=== PATIENT | female | born 1950 ===

== ENCOUNTER 2019-03-01 07:35 | Inpatient (IN) ==
[2019-03-01] MEDS ORDERED: SODIUM CHLORIDE 0.9% 1,000 ML IV PRN (08:16)
[2019-03-01] MEDS ORDERED: PROPOFOL 1,000 MG/100 ML BOTTLE IV ONE (08:21)
[2019-03-01 08:22] LABS: Basophils # 0.1 10*3/uL (0.0-0.2); Basophils % 0.6 % (0.0-0.8); Eosinophils # 0.2 10*3/uL (0.0-0.87); Eosinophils % 1.9 % (0.00-10.9); Hematocrit 20.8 VOL% (35.7-47.0); Immature Granulocytes % 0.5 %; Immature Granulocytes Absolute 0.05 #; Lymphocytes # 1.9 10*3/uL (1.4-4.0); Lymphocytes % 19.4 % (21.3-54.2); Mean Corpuscular HGB Conc 30.3 GM/DL (32-36); Mean Corpuscular Volume 103.5 FL (87-102); Mean Platelet Volume 12.2 FL (9.6-12.0); Monocytes % 4.9 % (1.7-12.7); Neutrophils % 72.7 % (38.7-73.9); Red Blood Count 2.01 MC/CUMM (3.8-5.5); Red Cell Distribution Width 14.8 % (9.3-17.3); White Blood Count 9.9 T/CUMM (4-12)
[2019-03-01 08:28] LABS: Hemoglobin 6.3 GM/DL (12.0-16.0); Platelet Count 70 T/CUMM (130-400)
[2019-03-01 08:31] LABS: INR 1.4; PT Patient Result 15.5 SECS (9.6-12.2); Partial Thromboplastin Time 30.9 SECS (20.8-36.0)
[2019-03-01 08:46] LABS: Hypochromasia 2+; Ovalocytes Slight; Platelet Estimate Decreased
[2019-03-01 08:47] LABS: Alanine Aminotransferase 30 U/L (13-56); Albumin 2.3 G/DL (3.4-5.0); Alkaline Phosphatase 122 U/L (45-117); Amylase 60 U/L (25-115); Aspartate Amino Transferase 55 U/L (0-37); Blood Urea Nitrogen 35 MG/DL (7-18); Calcium 7.3 MG/DL (8.5-10.1); Estimated Glom Filtration Rate 5 ML/MIN; Glucose 197 MG/DL (74-106); Osmolality,Calculated 298.8 MOS/KG (273-304); Total Protein 4.7 G/DL (6.4-8.3)
[2019-03-01] MEDS ORDERED: ACETAMINOPHEN 325 MG TABLET PO PRN (09:14)
[2019-03-01 09:27] LABS: Basophils # 0.1 10*3/uL (0.0-0.2); Basophils % 0.4 % (0.0-0.8); Eosinophils # 0.1 10*3/uL (0.0-0.87); Eosinophils % 0.6 % (0.00-10.9); Hematocrit 34.3 VOL% (35.7-47.0); Immature Granulocytes % 0.4 %; Immature Granulocytes Absolute 0.05 #; Lymphocytes # 0.7 10*3/uL (1.4-4.0); Lymphocytes % 6.3 % (21.3-54.2); Mean Corpuscular HGB Conc 31.5 GM/DL (32-36); Mean Corpuscular Volume 95.5 FL (87-102); Monocytes % 7.5 % (1.7-12.7); Neutrophils % 84.8 % (38.7-73.9); Red Blood Count 3.59 MC/CUMM (3.8-5.5); Red Cell Distribution Width 15.4 % (9.3-17.3); White Blood Count 11.5 T/CUMM (4-12)
[2019-03-01 09:29] LABS: Hemoglobin 10.8 GM/DL (12.0-16.0); Platelet Count 58 T/CUMM (130-400)
[2019-03-01] MEDS ORDERED: NOREPINEPHRINE 4 MG/4 ML VIAL IV ONE ×2 (09:45→10:26)
[2019-03-01] MEDS: DEXTROSE 5% NACL 0.45% 1,000 ML IV SCH ×2 (10:05→19:10)
[2019-03-01] MEDS: NOREPINEPHRINE 16 MG in SODIUM CHLORIDE 0.9% 234 ML IV PRN (10:23)
[2019-03-01] MEDS: ALBUTEROL/IPRATROPIUM 3 ML NEB RESP TX SCH ×3 (14:40→23:43)
[2019-03-01 14:42] LABS: Hematocrit 29.7 VOL% (35.7-47.0); Hemoglobin 9.7 GM/DL (12.0-16.0)
[2019-03-01] MEDS: MORPHINE 4 MG/1 ML VIAL IV PRN ×2 (16:54→23:54)
[2019-03-01] MEDS ORDERED: DEXTROSE 5% NACL 0.45% 1,000 ML IV SCH (19:30)
[2019-03-02] MEDS: ALBUTEROL/IPRATROPIUM 3 ML NEB RESP TX SCH ×6 (02:40→23:56)
[2019-03-02 05:08] LABS: Basophils # 0.1 10*3/uL (0.0-0.2); Basophils % 0.5 % (0.0-0.8); Eosinophils % 0.3 % (0.00-10.9); Hematocrit 25.1 VOL% (35.7-47.0); Hemoglobin 8.3 GM/DL (12.0-16.0); Immature Granulocytes % 0.7 %; Immature Granulocytes Absolute 0.08 #; Lymphocytes # 1.2 10*3/uL (1.4-4.0); Lymphocytes % 9.9 % (21.3-54.2); Mean Corpuscular HGB Conc 33.1 GM/DL (32-36); Mean Corpuscular Volume 92.3 FL (87-102); Mean Platelet Volume 12.6 FL (9.6-12.0); Monocytes % 12.8 % (1.7-12.7); NRBC # 0.02 10*3/uL; Neutrophils % 75.8 % (38.7-73.9); Red Blood Count 2.72 MC/CUMM (3.8-5.5); Red Cell Distribution Width 16.2 % (9.3-17.3); White Blood Count 11.9 T/CUMM (4-12)
[2019-03-02 05:10] LABS: Platelet Count 74 T/CUMM (130-400)
[2019-03-02 05:23] LABS: Albumin 2.6 G/DL (3.4-5.0); Bilirubin,Total 0.5 MG/DL (0.2-1.0); Calcium 7.4 MG/DL (8.5-10.1); Osmolality,Calculated 294.4 MOS/KG (273-304); Total Protein 5.3 G/DL (6.4-8.3)
[2019-03-02 05:39] LABS: Platelet Estimate Decreased; Polychromasia Few
[2019-03-02] MEDS: PANTOPRAZOLE 40 MG TABLET PO SCH (09:00)
[2019-03-02] MEDS: ONDANSETRON 4 MG/2 ML VIAL IV PRN ×2 (09:06→14:07)
[2019-03-02] MEDS: MORPHINE 4 MG/1 ML VIAL IV PRN ×5 (09:08→22:40)
[2019-03-02] MEDS ORDERED: PROMETHAZINE INJ 25 MG in SODIUM CHLORIDE 0.9% 50 ML IV ONE (14:17)
[2019-03-03] MEDS: NOREPINEPHRINE 16 MG in SODIUM CHLORIDE 0.9% 234 ML IV PRN (01:28)
[2019-03-03] MEDS: MORPHINE 4 MG/1 ML VIAL IV PRN ×4 (03:22→19:10)
[2019-03-03] MEDS: ALBUTEROL/IPRATROPIUM 3 ML NEB RESP TX SCH ×5 (03:33→19:56)
[2019-03-03 07:44] LABS: Albumin 2.4 G/DL (3.4-5.0); Bilirubin,Total 0.5 MG/DL (0.2-1.0); Calcium 7.6 MG/DL (8.5-10.1); Osmolality,Calculated 297.4 MOS/KG (273-304); Total Protein 5.4 G/DL (6.4-8.3)
[2019-03-03 08:27] LABS: Basophils # 0.1 10*3/uL (0.0-0.2); Basophils % 0.5 % (0.0-0.8); Eosinophils % 0.4 % (0.00-10.9); Immature Granulocytes % 0.7 %; Immature Granulocytes Absolute 0.07 #; Lymphocytes # 0.8 10*3/uL (1.4-4.0); Lymphocytes % 7.6 % (21.3-54.2); Mean Corpuscular HGB Conc 32.6 GM/DL (32-36); Mean Corpuscular Volume 94.1 FL (87-102); Mean Platelet Volume 11.3 FL (9.6-12.0); NRBC # 0.02 10*3/uL; Neutrophils % 75.8 % (38.7-73.9); Red Cell Distribution Width 16.4 % (9.3-17.3); White Blood Count 10.3 T/CUMM (4-12)
[2019-03-03 08:31] LABS: Hemoglobin 6.2 GM/DL (12.0-16.0); Platelet Count 56 T/CUMM (130-400); Red Blood Count 2.02 MC/CUMM (3.8-5.5)
[2019-03-03] MEDS ORDERED: SODIUM CHLORIDE 0.9% 1,000 ML IV PRN (08:33)
[2019-03-03 08:59] LABS: Hypochromasia 1+; Platelet Estimate Decreased
[2019-03-03] MEDS: PANTOPRAZOLE 40 MG TABLET PO SCH (09:10)
[2019-03-03 17:23] LABS: Hematocrit 28.6 VOL% (35.7-47.0); Hemoglobin 9.4 GM/DL (12.0-16.0)
[2019-03-04] MEDS: ALBUTEROL/IPRATROPIUM 3 ML NEB RESP TX SCH ×7 (00:45→23:00)
[2019-03-04 05:20] LABS: Basophils % 0.3 % (0.0-0.8); Eosinophils # 0.1 10*3/uL (0.0-0.87); Eosinophils % 2.2 % (0.00-10.9); Hematocrit 27.4 VOL% (35.7-47.0); Hemoglobin 9.1 GM/DL (12.0-16.0); Immature Granulocytes % 0.3 %; Immature Granulocytes Absolute 0.02 #; Lymphocytes # 0.6 10*3/uL (1.4-4.0); Lymphocytes % 9.1 % (21.3-54.2); Mean Corpuscular HGB Conc 33.2 GM/DL (32-36); Mean Corpuscular Volume 89.5 FL (87-102); Mean Platelet Volume 10.6 FL (9.6-12.0); Monocytes % 15.9 % (1.7-12.7); Neutrophils % 72.2 % (38.7-73.9); Red Blood Count 3.06 MC/CUMM (3.8-5.5); Red Cell Distribution Width 16.4 % (9.3-17.3); White Blood Count 6.4 T/CUMM (4-12)
[2019-03-04 05:28] LABS: Platelet Count 31 T/CUMM (130-400)
[2019-03-04 05:38] LABS: Albumin 2.7 G/DL (3.4-5.0); Calcium 8.3 MG/DL (8.5-10.1); Osmolality,Calculated 282.5 MOS/KG (273-304); Total Protein 5.8 G/DL (6.4-8.3)
[2019-03-04 05:46] LABS: Eosinophils 1 % (0-10); Lymphocytes 5 % (20-55); Myelocytes 1 %; Platelet Estimate Decreased; Polychromasia Slight; Segmented Neutrophils 78 % (50-85); Total Cells Counted 100
[2019-03-04] MEDS: PANTOPRAZOLE 40 MG TABLET PO SCH (08:08)
[2019-03-04] MEDS: MORPHINE 4 MG/1 ML VIAL IV PRN (11:01)
[2019-03-04] MEDS ORDERED: SODIUM CHLORIDE 0.9% 1,000 ML IV PRN (11:49)
[2019-03-04] MEDS ORDERED: diphenhydrAMINE 25 MG/10 ML UDCUP PO PRN (14:42)
[2019-03-04] MEDS ORDERED: diphenhydrAMINE CAP 25 MG CAPSULE PO PRN (14:44)
[2019-03-05] MEDS: ALBUTEROL/IPRATROPIUM 3 ML NEB RESP TX SCH ×6 (02:42→22:39)
[2019-03-05 05:22] LABS: Basophils % 0.3 % (0.0-0.8); Eosinophils # 0.2 10*3/uL (0.0-0.87); Eosinophils % 2.8 % (0.00-10.9); Hematocrit 28.9 VOL% (35.7-47.0); Hemoglobin 9.5 GM/DL (12.0-16.0); Immature Granulocytes % 0.5 %; Immature Granulocytes Absolute 0.04 #; Lymphocytes # 0.6 10*3/uL (1.4-4.0); Lymphocytes % 7.3 % (21.3-54.2); Mean Corpuscular HGB Conc 32.9 GM/DL (32-36); Mean Corpuscular Volume 90.6 FL (87-102); Mean Platelet Volume 11.6 FL (9.6-12.0); Monocytes % 13.3 % (1.7-12.7); Neutrophils % 75.8 % (38.7-73.9); Red Blood Count 3.19 MC/CUMM (3.8-5.5); Red Cell Distribution Width 16.1 % (9.3-17.3); White Blood Count 7.5 T/CUMM (4-12)
[2019-03-05 05:29] LABS: Platelet Count 75 T/CUMM (130-400)
[2019-03-05 05:47] LABS: Calcium 8.1 MG/DL (8.5-10.1); Osmolality,Calculated 287.5 MOS/KG (273-304)
[2019-03-05] MEDS ORDERED: HEPARIN/NACL 0.9% 2 UNITS/ML 500 ML IV ONE (06:14)
[2019-03-05] MEDS ORDERED: VANCOMYCIN 1,000 MG VIAL ONE (07:49)
[2019-03-05] MEDS ORDERED: ceFAZolin 1,000 MG VIAL ONE (08:51)
[2019-03-05] MEDS ORDERED: fentaNYL 100 MCG/2 ML VIAL ONE (09:35)
[2019-03-05] MEDS ORDERED: ETOMIDATE 40 MG/20 ML VIAL IV ONE (09:35)
[2019-03-05] MEDS ORDERED: LIDOCAINE 2% 5 ML VIAL ONE (09:35)
[2019-03-05] MEDS ORDERED: PHENYLEPHRINE 1 MG/10 ML SYRINGE IV ONE (09:35)
[2019-03-05] MEDS ORDERED: SEVOFLURANE 1 UNIT/15 MINUTE INH ONE (09:35)
[2019-03-05] MEDS ORDERED: PROPOFOL 200 MG/20 ML VIAL IV ONE (09:35)
[2019-03-05] MEDS ORDERED: GLYCOPYRROLATE 0.4 MG/2 ML VIAL ONE (09:36)
[2019-03-05] MEDS ORDERED: NEOSTIGMINE 10 MG/10 ML VIAL ONE (09:36)
[2019-03-05] MEDS ORDERED: ROCURONIUM 100 MG/10 ML VIAL IV ONE (09:36)
[2019-03-05] MEDS ORDERED: ONDANSETRON 4 MG/2 ML VIAL ONE (09:36)
[2019-03-05] MEDS ORDERED: SODIUM CHLORIDE 0.9% 750 ML IV ONE (09:37)
[2019-03-05] MEDS: PANTOPRAZOLE 40 MG TABLET PO SCH (10:18)
[2019-03-05] MEDS: MORPHINE 4 MG/1 ML VIAL IV PRN ×3 (10:19→16:35)
[2019-03-05] MEDS ORDERED: MIDAZOLAM 2 MG/2 ML VIAL ONE (11:31)
[2019-03-05] MEDS: ceFAZolin 1,000 MG in SYRINGE 1 EACH IV SCH (15:34)
[2019-03-06] MEDS: ceFAZolin 1,000 MG in SYRINGE 1 EACH IV SCH ×2 (00:47→07:18)
[2019-03-06] MEDS: ALBUTEROL/IPRATROPIUM 3 ML NEB RESP TX SCH ×6 (02:42→23:03)
[2019-03-06 04:33] LABS: Basophils % 0.3 % (0.0-0.8); Eosinophils # 0.1 10*3/uL (0.0-0.87); Eosinophils % 1.9 % (0.00-10.9); Hematocrit 25.3 VOL% (35.7-47.0); Hemoglobin 8.2 GM/DL (12.0-16.0); Immature Granulocytes % 0.4 %; Immature Granulocytes Absolute 0.03 #; Lymphocytes # 0.4 10*3/uL (1.4-4.0); Lymphocytes % 5.4 % (21.3-54.2); Mean Corpuscular HGB Conc 32.4 GM/DL (32-36); Mean Corpuscular Volume 91.7 FL (87-102); Mean Platelet Volume 12.2 FL (9.6-12.0); Red Blood Count 2.76 MC/CUMM (3.8-5.5); Red Cell Distribution Width 16.1 % (9.3-17.3); White Blood Count 6.9 T/CUMM (4-12)
[2019-03-06 04:34] LABS: Osmolality,Calculated 289.8 MOS/KG (273-304); Platelet Count 64 T/CUMM (130-400)
[2019-03-06 05:05] LABS: Eosinophils 4 % (0-10); Lymphocytes 9 % (20-55); Platelet Estimate Decreased; Segmented Neutrophils 74 % (50-85); Total Cells Counted 100
[2019-03-06] MEDS: MORPHINE 4 MG/1 ML VIAL IV PRN ×3 (07:18→13:50)
[2019-03-06] MEDS: PANTOPRAZOLE 40 MG TABLET PO SCH (08:47)
[2019-03-06] MEDS: MIDODRINE 5 MG TABLET PO SCH ×2 (14:39→20:30)
[2019-03-06] MEDS: SEVELAMER CARBONATE 800 MG TABLET PO SCH ×3 (14:39→20:41)
[2019-03-06] MEDS: CALCIUM ACETATE 667 MG CAPSULE PO SCH ×2 (14:39→17:03)
[2019-03-06] MEDS: DOCUSATE SODIUM 100 MG CAPSULE PO SCH (20:30)
[2019-03-06] MEDS: LATANOPROST 0.005% OPH SOLN 2.5 ML BOTTLE BOTH EYES SCH (23:21)
[2019-03-07] MEDS: ALBUTEROL/IPRATROPIUM 3 ML NEB RESP TX SCH ×5 (02:01→19:42)
[2019-03-07 06:05] LABS: Basophils % 0.1 % (0.0-0.8); Eosinophils # 0.2 10*3/uL (0.0-0.87); Eosinophils % 2.2 % (0.00-10.9); Hematocrit 27.4 VOL% (35.7-47.0); Hemoglobin 8.8 GM/DL (12.0-16.0); Immature Granulocytes % 0.7 %; Immature Granulocytes Absolute 0.05 #; Lymphocytes # 0.4 10*3/uL (1.4-4.0); Lymphocytes % 5.1 % (21.3-54.2); Mean Corpuscular HGB Conc 32.1 GM/DL (32-36); Mean Corpuscular Volume 92.3 FL (87-102); Mean Platelet Volume 11.8 FL (9.6-12.0); Monocytes % 15.4 % (1.7-12.7); Neutrophils % 76.5 % (38.7-73.9); Platelet Count 75 T/CUMM (130-400); Red Blood Count 2.97 MC/CUMM (3.8-5.5); White Blood Count 7.1 T/CUMM (4-12)
[2019-03-07 06:25] LABS: Calcium 8.8 MG/DL (8.5-10.1)
[2019-03-07 06:56] LABS: Anisocytosis 1+; Hypochromasia 1+; Microcytosis 1+; Ovalocytes Few
[2019-03-07 06:57] LABS: Platelet Estimate Decreased; Target Cells Slight
[2019-03-07] MEDS: DOCUSATE SODIUM 100 MG CAPSULE PO SCH ×2 (09:45→20:23)
[2019-03-07] MEDS: SEVELAMER CARBONATE 800 MG TABLET PO SCH ×3 (09:45→20:23)
[2019-03-07] MEDS: CALCIUM ACETATE 667 MG CAPSULE PO SCH ×3 (09:45→16:57)
[2019-03-07] MEDS: MIDODRINE 5 MG TABLET PO SCH ×3 (11:57→20:23)
[2019-03-07] MEDS: MULTIVITAMIN (BEROCCA) TABLET PO SCH (12:01)
[2019-03-07] MEDS: PANTOPRAZOLE 40 MG TABLET PO SCH (12:01)
[2019-03-07] MEDS: FONDAPARINUX 2.5 MG/0.5 ML SYRINGE SUBCUT SCH (13:04)
[2019-03-07] MEDS: LATANOPROST 0.005% OPH SOLN 2.5 ML BOTTLE BOTH EYES SCH (20:24)
[2019-03-08] MEDS: ALBUTEROL/IPRATROPIUM 3 ML NEB RESP TX SCH ×7 (03:41→23:57)
[2019-03-08 05:59] LABS: Basophils % 0.3 % (0.0-0.8); Eosinophils # 0.3 10*3/uL (0.0-0.87); Eosinophils % 4.5 % (0.00-10.9); Hematocrit 27.8 VOL% (35.7-47.0); Hemoglobin 8.8 GM/DL (12.0-16.0); Immature Granulocytes % 0.7 %; Immature Granulocytes Absolute 0.04 #; Lymphocytes # 0.5 10*3/uL (1.4-4.0); Lymphocytes % 8.6 % (21.3-54.2); Mean Corpuscular HGB Conc 31.7 GM/DL (32-36); Mean Corpuscular Volume 93.9 FL (87-102); Mean Platelet Volume 11.6 FL (9.6-12.0); Monocytes % 14.1 % (1.7-12.7); Neutrophils % 71.8 % (38.7-73.9); Platelet Count 86 T/CUMM (130-400); Red Blood Count 2.96 MC/CUMM (3.8-5.5); Red Cell Distribution Width 15.9 % (9.3-17.3)
[2019-03-08 06:25] LABS: Band Neutrophils 12 % (0-10); Eosinophils 3 % (0-10); Lymphocytes 11 % (20-55); Segmented Neutrophils 63 % (50-85); Total Cells Counted 100
[2019-03-08 06:26] LABS: Anisocytosis 1+; Hypochromasia Slight; Platelet Estimate Decreased
[2019-03-08] MEDS: MULTIVITAMIN (BEROCCA) TABLET PO SCH (09:35)
[2019-03-08] MEDS: PANTOPRAZOLE 40 MG TABLET PO SCH (09:36)
[2019-03-08] MEDS: DOCUSATE SODIUM 100 MG CAPSULE PO SCH ×2 (09:36→20:03)
[2019-03-08] MEDS: SEVELAMER CARBONATE 800 MG TABLET PO SCH ×3 (09:36→20:03)
[2019-03-08] MEDS: MIDODRINE 5 MG TABLET PO SCH ×3 (09:36→20:02)
[2019-03-08] MEDS: CALCIUM ACETATE 667 MG CAPSULE PO SCH ×3 (09:36→17:59)
[2019-03-08] MEDS: FONDAPARINUX 2.5 MG/0.5 ML SYRINGE SUBCUT SCH (11:56)
[2019-03-08] MEDS: LATANOPROST 0.005% OPH SOLN 2.5 ML BOTTLE BOTH EYES SCH (20:03)
[2019-03-09] MEDS: ALBUTEROL/IPRATROPIUM 3 ML NEB RESP TX SCH ×5 (04:00→20:56)
[2019-03-09] MEDS: SEVELAMER CARBONATE 800 MG TABLET PO SCH ×3 (09:30→22:00)
[2019-03-09] MEDS: CALCIUM ACETATE 667 MG CAPSULE PO SCH ×3 (09:31→17:47)
[2019-03-09] MEDS: MULTIVITAMIN (BEROCCA) TABLET PO SCH (09:31)
[2019-03-09] MEDS: PANTOPRAZOLE 40 MG TABLET PO SCH (09:31)
[2019-03-09] MEDS: MIDODRINE 5 MG TABLET PO SCH ×3 (09:31→22:00)
[2019-03-09] MEDS: DOCUSATE SODIUM 100 MG CAPSULE PO SCH ×2 (09:32→22:00)
[2019-03-09] MEDS: FONDAPARINUX 2.5 MG/0.5 ML SYRINGE SUBCUT SCH (11:59)
[2019-03-09] MEDS: LATANOPROST 0.005% OPH SOLN 2.5 ML BOTTLE BOTH EYES SCH (22:00)
[2019-03-10] MEDS: ALBUTEROL/IPRATROPIUM 3 ML NEB RESP TX SCH ×4 (00:46→11:07)
[2019-03-10] MEDS: CALCIUM ACETATE 667 MG CAPSULE PO SCH ×2 (08:00→12:48)
[2019-03-10] MEDS: SEVELAMER CARBONATE 800 MG TABLET PO SCH (09:00)
[2019-03-10] MEDS: MIDODRINE 5 MG TABLET PO SCH (09:00)
[2019-03-10 12:25] VITALS: BP 137/46
[2019-03-10] MEDS: FONDAPARINUX 2.5 MG/0.5 ML SYRINGE SUBCUT SCH (12:49)
[2019-03-10] MEDS: MULTIVITAMIN (BEROCCA) TABLET PO SCH (12:49)
[2019-03-10] MEDS: DOCUSATE SODIUM 100 MG CAPSULE PO SCH (12:49)
[2019-03-10] MEDS: PANTOPRAZOLE 40 MG TABLET PO SCH (12:49)
== END 2019-03-10 14:20 | DRG 515 ==
LOC: EDUNIT# → EDBD → N.ED 07:35 → N.EDINP 09:14 → N.ICU 10:26 → N.3E 03-06 15:26
PROVIDERS: ADMIT Surgery; ATTEND Surgery

== ENCOUNTER 2019-03-18 10:22 | Inpatient (IN) ==
[2019-03-18] MEDS ORDERED: SODIUM CHLORIDE 0.9% 500 ML IV STA (10:27)
[2019-03-18 10:58] LABS: Basophils % 0.2 % (0.0-0.8); Eosinophils # 0.1 10*3/uL (0.0-0.87); Eosinophils % 0.4 % (0.00-10.9); Hematocrit 21.3 VOL% (35.7-47.0); Hemoglobin 6.6 GM/DL (12.0-16.0); Immature Granulocytes % 1.3 %; Immature Granulocytes Absolute 0.23 #; Lymphocytes # 0.5 10*3/uL (1.4-4.0); Mean Corpuscular Volume 99.5 FL (87-102); Mean Platelet Volume 11.2 FL (9.6-12.0); Monocytes % 8.7 % (1.7-12.7); Neutrophils % 86.4 % (38.7-73.9); Platelet Count 215 T/CUMM (130-400); Red Blood Count 2.14 MC/CUMM (3.8-5.5); Red Cell Distribution Width 17.2 % (9.3-17.3); White Blood Count 17.9 T/CUMM (4-12)
[2019-03-18 11:10] LABS: INR 2.2
[2019-03-18 11:14] LABS: PT Patient Result 24.1 SECS (9.6-12.2)
[2019-03-18 11:21] LABS: Anisocytosis 1+; Band Neutrophils 2 % (0-10); Lymphocytes 2 % (20-55); Platelet Estimate Normal; Segmented Neutrophils 87 % (50-85); Total Cells Counted 100
[2019-03-18 11:22] LABS: Macrocytosis 1+; Polychromasia Slight
[2019-03-18 11:35] LABS: Albumin 2.2 G/DL (3.4-5.0); Calcium 8.8 MG/DL (8.5-10.1); Osmolality,Calculated 286.5 MOS/KG (273-304); Total Protein 5.9 G/DL (6.4-8.3)
[2019-03-18] MEDS ORDERED: DEXTROSE 50% 25 GM/50 ML VIAL IV PRN (12:03)
[2019-03-18] MEDS ORDERED: LACTULOSE 20 GM/30 ML UDCUP PO PRN (12:03)
[2019-03-18] MEDS ORDERED: ONDANSETRON 4 MG/2 ML VIAL IV PRN (12:03)
[2019-03-18] MEDS ORDERED: GLUCAGON 1 MG VIAL IM PRN (12:03)
[2019-03-18] MEDS ORDERED: SODIUM CHLORIDE 0.9% 1,000 ML IV PRN ×2 (12:11→13:19)
[2019-03-18] MEDS: SODIUM CHLORIDE 0.45% 1,000 ML IV SCH ×2 (13:09→21:02)
[2019-03-18] MEDS: LATANOPROST 0.005% OPH SOLN 2.5 ML BOTTLE BOTH EYES SCH (21:04)
[2019-03-18] MEDS: PIPERACILLIN/TAZOBACTAM 3,375 MG in SODIUM CHLORIDE 0.9% 100 ML IV SCH (21:04)
[2019-03-18] MEDS: MENTHOL/ZINC OXIDE OINT 71 GM JAR TOP SCH (21:04)
[2019-03-18] MEDS: traMADol 50 MG TABLET PO PRN (21:22)
[2019-03-19 01:36] LABS: Hematocrit 22.8 VOL% (35.7-47.0); Hemoglobin 7.1 GM/DL (12.0-16.0)
[2019-03-19 05:41] LABS: Alanine Aminotransferase < 9 U/L (13-56); Albumin 1.8 G/DL (3.4-5.0); Alkaline Phosphatase 115 U/L (45-117); Aspartate Amino Transferase 20 U/L (0-37); Blood Urea Nitrogen 43 MG/DL (7-18); Calcium 8.5 MG/DL (8.5-10.1); Estimated Glom Filtration Rate 10 ML/MIN; Glucose 130 MG/DL (74-106); Osmolality,Calculated 285.8 MOS/KG (273-304); Total Protein 5.2 G/DL (6.4-8.3)
[2019-03-19] MEDS: SODIUM CHLORIDE 0.45% 1,000 ML IV SCH (06:22)
[2019-03-19] MEDS: PIPERACILLIN/TAZOBACTAM 3,375 MG in SODIUM CHLORIDE 0.9% 100 ML IV SCH ×2 (08:18→20:32)
[2019-03-19] MEDS: MENTHOL/ZINC OXIDE OINT 71 GM JAR TOP SCH ×2 (08:22→20:32)
[2019-03-19] MEDS: MIDODRINE 5 MG TABLET PO SCH ×3 (08:22→17:31)
[2019-03-19] MEDS: SEVELAMER CARBONATE 800 MG TABLET PO SCH ×3 (08:22→17:30)
[2019-03-19] MEDS ORDERED: PANTOPRAZOLE 40 MG TABLET PO SCH ×2 (09:00)
[2019-03-19] MEDS ORDERED: SODIUM CHLORIDE 0.45% 1,000 ML IV SCH (10:07)
[2019-03-19 10:09] LABS: Hepatitis B Surface Ag Result Negative (Negative)
[2019-03-19] MEDS: PHYTONADIONE 5 MG/5 ML ORAL.SYR PO SCH (11:21)
[2019-03-19] MEDS: PANTOPRAZOLE 40 MG TABLET PO SCH (20:32)
[2019-03-19] MEDS: LATANOPROST 0.005% OPH SOLN 2.5 ML BOTTLE BOTH EYES SCH (20:32)
[2019-03-19] MEDS: traMADol 50 MG TABLET PO PRN (20:44)
[2019-03-20 05:58] LABS: INR 1.1; PT Patient Result 12.3 SECS (9.6-12.2)
[2019-03-20 06:01] LABS: Basophils # 0.1 10*3/uL (0.0-0.2); Basophils % 0.6 % (0.0-0.8); Eosinophils # 0.1 10*3/uL (0.0-0.87); Eosinophils % 1.1 % (0.00-10.9); Hematocrit 26.8 VOL% (35.7-47.0); Hemoglobin 8.6 GM/DL (12.0-16.0); Immature Granulocytes % 1.8 %; Immature Granulocytes Absolute 0.23 #; Lymphocytes # 0.7 10*3/uL (1.4-4.0); Lymphocytes % 5.8 % (21.3-54.2); Mean Corpuscular HGB Conc 32.1 GM/DL (32-36); Mean Corpuscular Volume 89.9 FL (87-102); Mean Platelet Volume 10.5 FL (9.6-12.0); Monocytes % 10.6 % (1.7-12.7); Neutrophils % 80.1 % (38.7-73.9); Red Cell Distribution Width 20.5 % (9.3-17.3)
[2019-03-20 06:05] LABS: Platelet Count 168 T/CUMM (130-400); Red Blood Count 2.98 MC/CUMM (3.8-5.5); White Blood Count 12.5 T/CUMM (4-12)
[2019-03-20 06:07] LABS: Calcium 8.8 MG/DL (8.5-10.1); Osmolality,Calculated 279.8 MOS/KG (273-304)
[2019-03-20] MEDS: SEVELAMER CARBONATE 800 MG TABLET PO SCH ×3 (09:39→16:31)
[2019-03-20] MEDS: traMADol 50 MG TABLET PO PRN ×2 (09:40→20:12)
[2019-03-20] MEDS: PANTOPRAZOLE 40 MG TABLET PO SCH ×2 (09:40→20:11)
[2019-03-20] MEDS: MIDODRINE 5 MG TABLET PO SCH ×3 (09:40→16:31)
[2019-03-20] MEDS: PIPERACILLIN/TAZOBACTAM 3,375 MG in SODIUM CHLORIDE 0.9% 100 ML IV SCH ×2 (09:41→20:11)
[2019-03-20] MEDS: PHYTONADIONE 5 MG/5 ML ORAL.SYR PO SCH (09:42)
[2019-03-20] MEDS: MENTHOL/ZINC OXIDE OINT 71 GM JAR TOP SCH ×2 (09:43→20:12)
[2019-03-20] MEDS ORDERED: propofoL 200 MG/20 ML VIAL IV ONE (10:00)
[2019-03-20] MEDS ORDERED: LIDOCAINE 2% 5 ML VIAL ONE (10:00)
[2019-03-20] MEDS ORDERED: ETOMIDATE 20 MG/10 ML VIAL IV ONE (10:00)
[2019-03-20] MEDS ORDERED: GLUCAGON 1 MG VIAL IM PRN (11:38)
[2019-03-20] MEDS: LATANOPROST 0.005% OPH SOLN 2.5 ML BOTTLE BOTH EYES SCH (20:12)
[2019-03-21 06:17] LABS: Basophils # 0.1 10*3/uL (0.0-0.2); Basophils % 0.4 % (0.0-0.8); Eosinophils # 0.2 10*3/uL (0.0-0.87); Eosinophils % 1.7 % (0.00-10.9); Hematocrit 27.2 VOL% (35.7-47.0); Hemoglobin 8.6 GM/DL (12.0-16.0); Immature Granulocytes % 3.1 %; Immature Granulocytes Absolute 0.35 #; Lymphocytes # 0.9 10*3/uL (1.4-4.0); Lymphocytes % 8.2 % (21.3-54.2); Mean Corpuscular HGB Conc 31.6 GM/DL (32-36); Mean Platelet Volume 10.8 FL (9.6-12.0); Monocytes % 12.3 % (1.7-12.7); Neutrophils % 74.3 % (38.7-73.9); Platelet Count 143 T/CUMM (130-400); Red Blood Count 2.99 MC/CUMM (3.8-5.5); Red Cell Distribution Width 20.6 % (9.3-17.3); White Blood Count 11.2 T/CUMM (4-12)
[2019-03-21] MEDS ORDERED: EPOETIN ALFA 2,000 UNIT/1 ML VIAL IV PRN (08:48)
[2019-03-21] MEDS: PANTOPRAZOLE 40 MG TABLET PO SCH ×2 (10:23→21:21)
[2019-03-21] MEDS: PIPERACILLIN/TAZOBACTAM 3,375 MG in SODIUM CHLORIDE 0.9% 100 ML IV SCH (10:23)
[2019-03-21] MEDS: MIDODRINE 5 MG TABLET PO SCH ×3 (10:23→16:32)
[2019-03-21] MEDS: SEVELAMER CARBONATE 800 MG TABLET PO SCH ×3 (10:23→16:32)
[2019-03-21] MEDS: MENTHOL/ZINC OXIDE OINT 71 GM JAR TOP SCH ×2 (10:27→21:22)
[2019-03-21] MEDS ORDERED: TUBERCULIN SKIN TEST 0.1 ML SYRINGE INTRADERM ONE (12:44)
[2019-03-21] MEDS: ACETAMINOPHEN 325 MG TABLET PO PRN ×2 (16:38→23:41)
[2019-03-21] MEDS: LATANOPROST 0.005% OPH SOLN 2.5 ML BOTTLE BOTH EYES SCH (21:25)
[2019-03-22] MEDS: PANTOPRAZOLE 40 MG TABLET PO SCH ×2 (09:09→20:36)
[2019-03-22] MEDS: AMOXICILLIN/CLAV 500 MG TABLET PO SCH (09:09)
[2019-03-22] MEDS: SEVELAMER CARBONATE 800 MG TABLET PO SCH ×3 (09:09→16:59)
[2019-03-22] MEDS: MIDODRINE 5 MG TABLET PO SCH ×3 (09:09→16:59)
[2019-03-22] MEDS: MENTHOL/ZINC OXIDE OINT 71 GM JAR TOP SCH ×2 (09:09→20:37)
[2019-03-22] MEDS: LATANOPROST 0.005% OPH SOLN 2.5 ML BOTTLE BOTH EYES SCH (20:38)
[2019-03-22] MEDS: ACETAMINOPHEN 325 MG TABLET PO PRN (20:43)
[2019-03-23] MEDS: PANTOPRAZOLE 40 MG TABLET PO SCH ×2 (08:13→21:01)
[2019-03-23] MEDS: SEVELAMER CARBONATE 800 MG TABLET PO SCH ×3 (08:13→16:17)
[2019-03-23] MEDS: MIDODRINE 5 MG TABLET PO SCH ×3 (08:13→16:17)
[2019-03-23] MEDS: MENTHOL/ZINC OXIDE OINT 71 GM JAR TOP SCH ×2 (08:13→21:05)
[2019-03-23] MEDS: AMOXICILLIN/CLAV 500 MG TABLET PO SCH (08:13)
[2019-03-23] MEDS: ACETAMINOPHEN 325 MG TABLET PO PRN ×2 (16:21→22:27)
[2019-03-23] MEDS: LATANOPROST 0.005% OPH SOLN 2.5 ML BOTTLE BOTH EYES SCH (21:01)
[2019-03-24] MEDS: SEVELAMER CARBONATE 800 MG TABLET PO SCH ×3 (08:22→17:42)
[2019-03-24] MEDS: MIDODRINE 5 MG TABLET PO SCH ×3 (08:22→17:42)
[2019-03-24] MEDS: PANTOPRAZOLE 40 MG TABLET PO SCH ×2 (08:31→22:21)
[2019-03-24] MEDS: AMOXICILLIN/CLAV 500 MG TABLET PO SCH (08:31)
[2019-03-24] MEDS: MENTHOL/ZINC OXIDE OINT 71 GM JAR TOP SCH ×2 (08:32→22:22)
[2019-03-24] MEDS: ACETAMINOPHEN 325 MG TABLET PO PRN (14:39)
[2019-03-24] MEDS: LATANOPROST 0.005% OPH SOLN 2.5 ML BOTTLE BOTH EYES SCH (22:21)
[2019-03-25] MEDS: SEVELAMER CARBONATE 800 MG TABLET PO SCH ×3 (08:44→17:22)
[2019-03-25] MEDS: MIDODRINE 5 MG TABLET PO SCH ×3 (08:44→17:22)
[2019-03-25] MEDS: PANTOPRAZOLE 40 MG TABLET PO SCH ×2 (08:44→22:09)
[2019-03-25] MEDS: AMOXICILLIN/CLAV 500 MG TABLET PO SCH (08:45)
[2019-03-25] MEDS: MENTHOL/ZINC OXIDE OINT 71 GM JAR TOP SCH (11:54)
[2019-03-25] MEDS: LATANOPROST 0.005% OPH SOLN 2.5 ML BOTTLE BOTH EYES SCH (22:10)
[2019-03-26] MEDS: MENTHOL/ZINC OXIDE OINT 71 GM JAR TOP SCH ×3 (00:22→20:53)
[2019-03-26] MEDS ORDERED: SODIUM CHLORIDE 0.9% 250 ML IV SCH (10:30)
[2019-03-26] MEDS: SEVELAMER CARBONATE 800 MG TABLET PO SCH ×3 (11:38→18:22)
[2019-03-26] MEDS: MIDODRINE 5 MG TABLET PO SCH ×3 (11:38→18:23)
[2019-03-26] MEDS ORDERED: fentaNYL 100 MCG/2 ML VIAL ONE (12:05)
[2019-03-26] MEDS ORDERED: propofoL 200 MG/20 ML VIAL IV ONE (12:05)
[2019-03-26] MEDS ORDERED: LIDOCAINE 2% 5 ML VIAL ONE (12:06)
[2019-03-26] MEDS ORDERED: ONDANSETRON 4 MG/2 ML VIAL ONE (12:06)
[2019-03-26] MEDS ORDERED: SODIUM CHLORIDE 0.9% 250 ML IV ONE (12:06)
[2019-03-26] MEDS ORDERED: SEVOFLURANE 1 UNIT/15 MINUTE INH ONE (12:06)
[2019-03-26] MEDS ORDERED: ETOMIDATE 40 MG/20 ML VIAL IV ONE (12:06)
[2019-03-26] MEDS ORDERED: PHENYLEPHRINE 1 MG/10 ML SYRINGE IV ONE (12:06)
[2019-03-26] MEDS ORDERED: ONDANSETRON 4 MG/2 ML VIAL IV PRN (12:11)
[2019-03-26] MEDS: HYDROmorphone 2 MG/1 ML VIAL IV PRN ×2 (12:13→12:26)
[2019-03-26] MEDS: AMOXICILLIN/CLAV 500 MG TABLET PO SCH (14:24)
[2019-03-26] MEDS: PANTOPRAZOLE 40 MG TABLET PO SCH ×2 (14:24→20:53)
[2019-03-26] MEDS: ACETAMINOPHEN 325 MG TABLET PO PRN (20:54)
[2019-03-26] MEDS: LATANOPROST 0.005% OPH SOLN 2.5 ML BOTTLE BOTH EYES SCH (23:41)
[2019-03-27] MEDS: SEVELAMER CARBONATE 800 MG TABLET PO SCH ×3 (09:05→17:02)
[2019-03-27] MEDS: MIDODRINE 5 MG TABLET PO SCH ×3 (09:05→17:02)
[2019-03-27] MEDS: PANTOPRAZOLE 40 MG TABLET PO SCH ×2 (09:05→21:14)
[2019-03-27] MEDS: AMOXICILLIN/CLAV 500 MG TABLET PO SCH (09:05)
[2019-03-27] MEDS: MENTHOL/ZINC OXIDE OINT 71 GM JAR TOP SCH ×2 (09:06→21:14)
[2019-03-27] MEDS: LATANOPROST 0.005% OPH SOLN 2.5 ML BOTTLE BOTH EYES SCH (21:14)
[2019-03-28] MEDS: MIDODRINE 5 MG TABLET PO SCH ×3 (12:00→19:05)
[2019-03-28] MEDS: SEVELAMER CARBONATE 800 MG TABLET PO SCH ×3 (12:00→19:05)
[2019-03-28] MEDS: PANTOPRAZOLE 40 MG TABLET PO SCH ×2 (12:01→20:57)
[2019-03-28] MEDS ORDERED: HYDROmorphone 2 MG/1 ML VIAL IV ONE (14:35)
[2019-03-28] MEDS: MENTHOL/ZINC OXIDE OINT 71 GM JAR TOP SCH ×2 (15:45→20:58)
[2019-03-28] MEDS: AMOXICILLIN/CLAV 500 MG TABLET PO SCH (15:45)
[2019-03-28] MEDS: LATANOPROST 0.005% OPH SOLN 2.5 ML BOTTLE BOTH EYES SCH (20:57)
[2019-03-29] MEDS: AMOXICILLIN/CLAV 500 MG TABLET PO SCH (09:17)
[2019-03-29] MEDS: SEVELAMER CARBONATE 800 MG TABLET PO SCH ×3 (09:17→17:05)
[2019-03-29] MEDS: MIDODRINE 5 MG TABLET PO SCH ×3 (09:17→17:05)
[2019-03-29] MEDS: MENTHOL/ZINC OXIDE OINT 71 GM JAR TOP SCH ×2 (09:18→21:27)
[2019-03-29] MEDS: PANTOPRAZOLE 40 MG TABLET PO SCH ×2 (09:18→21:27)
[2019-03-29] MEDS: LATANOPROST 0.005% OPH SOLN 2.5 ML BOTTLE BOTH EYES SCH (21:27)
[2019-03-30] MEDS: MENTHOL/ZINC OXIDE OINT 71 GM JAR TOP SCH ×2 (08:35→21:17)
[2019-03-30] MEDS: DOCUSATE SODIUM 100 MG CAPSULE PO PRN ×2 (08:38→21:17)
[2019-03-30] MEDS: MIDODRINE 5 MG TABLET PO SCH ×3 (08:38→17:26)
[2019-03-30] MEDS: SEVELAMER CARBONATE 800 MG TABLET PO SCH ×3 (08:38→17:26)
[2019-03-30] MEDS: PANTOPRAZOLE 40 MG TABLET PO SCH ×2 (08:38→21:18)
[2019-03-30 09:16] LABS: Basophils # 0.1 10*3/uL (0.0-0.2); Basophils % 0.6 % (0.0-0.8); Eosinophils # 0.5 10*3/uL (0.0-0.87); Eosinophils % 4.1 % (0.00-10.9); Hematocrit 29.8 VOL% (35.7-47.0); Hemoglobin 9.4 GM/DL (12.0-16.0); Immature Granulocytes % 0.8 %; Immature Granulocytes Absolute 0.09 #; Lymphocytes % 9.5 % (21.3-54.2); Mean Corpuscular HGB Conc 31.5 GM/DL (32-36); Mean Corpuscular Volume 94.3 FL (87-102); Monocytes % 11.3 % (1.7-12.7); Neutrophils % 73.7 % (38.7-73.9); Platelet Count 135 T/CUMM (130-400); Red Blood Count 3.16 MC/CUMM (3.8-5.5); Red Cell Distribution Width 19.9 % (9.3-17.3); White Blood Count 10.9 T/CUMM (4-12)
[2019-03-30] MEDS: LATANOPROST 0.005% OPH SOLN 2.5 ML BOTTLE BOTH EYES SCH (21:18)
[2019-03-31] MEDS: SEVELAMER CARBONATE 800 MG TABLET PO SCH ×2 (08:18→13:22)
[2019-03-31] MEDS: PANTOPRAZOLE 40 MG TABLET PO SCH (08:18)
[2019-03-31] MEDS: MIDODRINE 5 MG TABLET PO SCH ×2 (08:19→13:22)
[2019-03-31] MEDS: MENTHOL/ZINC OXIDE OINT 71 GM JAR TOP SCH (08:19)
[2019-03-31] MEDS ORDERED: MORPHINE 4 MG/1 ML VIAL IV ONE (13:39)
[2019-03-31 14:02] VITALS: BP 121/54
== END 2019-03-31 15:10 | DRG 356 ==
LOC: EDUNIT# → EDBD → N.ED 10:22 → SUATTDRO 12:03 → N.EDINP 12:03 → N.5E 13:01
PROVIDERS: ADMIT Internal Medicine; ATTEND Internal Medicine

== ENCOUNTER 2019-05-15 23:27 | Inpatient (IN) ==
[2019-05-16] MEDS ORDERED: ONDANSETRON 4 MG/2 ML VIAL IV STA (00:03)
[2019-05-16] MEDS ORDERED: VANCOMYCIN INJ 1,000 MG in SODIUM CHLORIDE 0.9% 250 ML IV STA ×2 (00:03→00:08)
[2019-05-16 00:43] LABS: Basophils # 0.1 10*3/uL (0.0-0.2); Eosinophils # 0.2 10*3/uL (0.0-0.87); Eosinophils % 2.1 % (0.00-10.9); Hematocrit 28.7 VOL% (35.7-47.0); Hemoglobin 8.7 GM/DL (12.0-16.0); Immature Granulocytes % 0.6 %; Immature Granulocytes Absolute 0.04 #; Lymphocytes # 0.8 10*3/uL (1.4-4.0); Lymphocytes % 10.8 % (21.3-54.2); Mean Corpuscular HGB Conc 30.3 GM/DL (32-36); Mean Platelet Volume 11.3 FL (9.6-12.0); Monocytes % 15.5 % (1.7-12.7); Platelet Count 132 T/CUMM (130-400); Red Blood Count 2.87 MC/CUMM (3.8-5.5); Red Cell Distribution Width 16.8 % (9.3-17.3); White Blood Count 7.2 T/CUMM (4-12)
[2019-05-16 00:46] LABS: INR 1.1; PT Patient Result 11.4 SECS (9.6-12.2)
[2019-05-16 00:59] LABS: Alanine Aminotransferase < 9 U/L (13-56); Albumin 2.4 G/DL (3.4-5.0); Alkaline Phosphatase 199 U/L (45-117); Aspartate Amino Transferase 15 U/L (0-37); Blood Urea Nitrogen 49 MG/DL (7-18); Calcium 9.4 MG/DL (8.5-10.1); Estimated Glom Filtration Rate 11 ML/MIN; Glucose 197 MG/DL (74-106); Osmolality,Calculated 290.8 MOS/KG (273-304); Total Protein 6.7 G/DL (6.4-8.3)
[2019-05-16] MEDS ORDERED: ACETAMINOPHEN 325 MG TABLET PO PRN (02:14)
[2019-05-16] MEDS ORDERED: ONDANSETRON 4 MG/2 ML VIAL IV PRN (02:14)
[2019-05-16] MEDS ORDERED: VANCOMYCIN INJ 1,250 MG in SODIUM CHLORIDE 0.9% 250 ML IV PRN (02:58)
[2019-05-16] MEDS ORDERED: VANCOMYCIN INJ 500 MG in SODIUM CHLORIDE 0.9% 100 ML IV PRN (03:30)
[2019-05-16] MEDS ORDERED: VANCOMYCIN INJ 750 MG in SODIUM CHLORIDE 0.9% 250 ML IV ONE (03:30)
[2019-05-16] MEDS ORDERED: VANCOMYCIN INJ 1,500 MG in SODIUM CHLORIDE 0.9% 500 ML IV ONE (03:30)
[2019-05-16] MEDS ORDERED: DEXTROSE 50% 25 GM/50 ML VIAL IV PRN (04:22)
[2019-05-16] MEDS ORDERED: GLUCAGON 1 MG VIAL IM PRN (04:22)
[2019-05-16] MEDS ORDERED: CEFEPIME 1,000 MG in SODIUM CHLORIDE 0.9% 100 ML IV ONE (09:30)
[2019-05-16] MEDS: INSULIN REGULAR 100 UNIT/ML SUBCUT SCH ×4 (10:31→21:50)
[2019-05-16] MEDS ORDERED: LACTULOSE 20 GM/30 ML UDCUP PO PRN (12:23)
[2019-05-16] MEDS ORDERED: POLYETHYLENE GLYCOL POWDER 17 GM PACK PO PRN (12:23)
[2019-05-16] MEDS: SEVELAMER CARBONATE 800 MG TABLET PO SCH (17:46)
[2019-05-16] MEDS: METOCLOPRAMIDE 5 MG TABLET PO SCH ×2 (17:46→21:50)
[2019-05-16] MEDS: FERROUS SULFATE 325 MG TABLET PO SCH (17:46)
[2019-05-16] MEDS: LATANOPROST 0.005% OPH SOLN 2.5 ML BOTTLE BOTH EYES SCH (21:49)
[2019-05-17 05:26] LABS: Basophils # 0.1 10*3/uL (0.0-0.2); Basophils % 0.9 % (0.0-0.8); Eosinophils # 0.3 10*3/uL (0.0-0.87); Eosinophils % 5.5 % (0.00-10.9); Hemoglobin 7.6 GM/DL (12.0-16.0); Immature Granulocytes % 0.9 %; Immature Granulocytes Absolute 0.05 #; Lymphocytes # 0.8 10*3/uL (1.4-4.0); Mean Corpuscular HGB Conc 29.2 GM/DL (32-36); Mean Corpuscular Volume 101.6 FL (87-102); Mean Platelet Volume 11.7 FL (9.6-12.0); Monocytes % 17.6 % (1.7-12.7); Neutrophils % 62.1 % (38.7-73.9); Platelet Count 124 T/CUMM (130-400); Red Blood Count 2.56 MC/CUMM (3.8-5.5); Red Cell Distribution Width 16.6 % (9.3-17.3); White Blood Count 5.8 T/CUMM (4-12)
[2019-05-17 05:55] LABS: Alanine Aminotransferase < 9 U/L (13-56); Albumin 2.2 G/DL (3.4-5.0); Alkaline Phosphatase 161 U/L (45-117); Aspartate Amino Transferase 11 U/L (0-37); Blood Urea Nitrogen 61 MG/DL (7-18); Calcium 8.9 MG/DL (8.5-10.1); Estimated Glom Filtration Rate 6 ML/MIN; Glucose 158 MG/DL (74-106); Osmolality,Calculated 298.4 MOS/KG (273-304); Total Protein 6.2 G/DL (6.4-8.3)
[2019-05-17 06:03] LABS: Osmolality,Calculated 296.5 MOS/KG (273-304); Risk Ratio 2.06; Thyroid Stimulating Hormone 8.05 uIU/ml (0.358-3.74); VLDL CHOLESTEROL 12.2 MG/DL
[2019-05-17 07:42] LABS: Band Neutrophils 1 % (0-10); Eosinophils 2 % (0-10); Hypochromasia 1+; Lymphocytes 10 % (20-55); Microcytosis Slight; Segmented Neutrophils 80 % (50-85); Total Cells Counted 100
[2019-05-17 07:43] LABS: Anisocytosis 1+; Macrocytosis Slight; Platelet Estimate Adequate; Polychromasia Slight
[2019-05-17] MEDS: INSULIN REGULAR 100 UNIT/ML SUBCUT SCH ×5 (09:17→21:52)
[2019-05-17] MEDS: METOCLOPRAMIDE 5 MG TABLET PO SCH ×4 (09:18→21:47)
[2019-05-17] MEDS: MULTIVITAMIN (BEROCCA) TABLET PO SCH (09:18)
[2019-05-17] MEDS: FERROUS SULFATE 325 MG TABLET PO SCH ×2 (09:18→17:24)
[2019-05-17] MEDS: PANTOPRAZOLE 40 MG TABLET PO SCH (09:18)
[2019-05-17] MEDS: SEVELAMER CARBONATE 800 MG TABLET PO SCH ×3 (09:18→17:24)
[2019-05-17] MEDS ORDERED: SODIUM CHLORIDE 0.9% 1,000 ML IV PRN (12:22)
[2019-05-17] MEDS: CEFEPIME 1,000 MG in SODIUM CHLORIDE 0.9% 100 ML IV SCH (17:24)
[2019-05-17] MEDS ORDERED: VANCOMYCIN INJ 500 MG in SODIUM CHLORIDE 0.9% 100 ML IV ONE (18:00)
[2019-05-17] MEDS: LATANOPROST 0.005% OPH SOLN 2.5 ML BOTTLE BOTH EYES SCH (21:47)
[2019-05-18 05:31] LABS: Basophils % 0.6 % (0.0-0.8); Eosinophils # 0.3 10*3/uL (0.0-0.87); Hematocrit 28.4 VOL% (35.7-47.0); Hemoglobin 8.6 GM/DL (12.0-16.0); Immature Granulocytes % 0.6 %; Immature Granulocytes Absolute 0.03 #; Lymphocytes # 0.9 10*3/uL (1.4-4.0); Lymphocytes % 18.1 % (21.3-54.2); Mean Corpuscular HGB Conc 30.3 GM/DL (32-36); Mean Corpuscular Volume 100.4 FL (87-102); Mean Platelet Volume 11.6 FL (9.6-12.0); Monocytes % 16.6 % (1.7-12.7); Neutrophils % 58.1 % (38.7-73.9); Platelet Count 111 T/CUMM (130-400); Red Blood Count 2.83 MC/CUMM (3.8-5.5); Red Cell Distribution Width 16.4 % (9.3-17.3); White Blood Count 5.2 T/CUMM (4-12)
[2019-05-18 05:58] LABS: Calcium 9.2 MG/DL (8.5-10.1); Osmolality,Calculated 284.5 MOS/KG (273-304)
[2019-05-18 06:40] LABS: Eosinophils 12 % (0-10); Lymphocytes 11 % (20-55); Segmented Neutrophils 67 % (50-85); Total Cells Counted 100
[2019-05-18 06:41] LABS: Anisocytosis 1+; Ovalocytes 2+; Platelet Estimate Adequate
[2019-05-18] MEDS: PANTOPRAZOLE 40 MG TABLET PO SCH (08:19)
[2019-05-18] MEDS: FERROUS SULFATE 325 MG TABLET PO SCH ×2 (08:19→17:00)
[2019-05-18] MEDS: SEVELAMER CARBONATE 800 MG TABLET PO SCH ×3 (08:19→17:00)
[2019-05-18] MEDS: METOCLOPRAMIDE 5 MG TABLET PO SCH ×4 (08:19→21:38)
[2019-05-18] MEDS: INSULIN REGULAR 100 UNIT/ML SUBCUT SCH ×4 (08:19→21:40)
[2019-05-18] MEDS: MULTIVITAMIN (BEROCCA) TABLET PO SCH (08:19)
[2019-05-18] MEDS: CEFEPIME 1,000 MG in SODIUM CHLORIDE 0.9% 100 ML IV SCH (17:00)
[2019-05-18] MEDS: LATANOPROST 0.005% OPH SOLN 2.5 ML BOTTLE BOTH EYES SCH (21:39)
[2019-05-19 04:27] LABS: Basophils % 0.8 % (0.0-0.8); Eosinophils # 0.3 10*3/uL (0.0-0.87); Eosinophils % 5.1 % (0.00-10.9); Hematocrit 27.5 VOL% (35.7-47.0); Hemoglobin 8.3 GM/DL (12.0-16.0); Immature Granulocytes Absolute 0.05 #; Lymphocytes # 0.9 10*3/uL (1.4-4.0); Mean Corpuscular HGB Conc 30.2 GM/DL (32-36); Mean Corpuscular Volume 99.6 FL (87-102); Mean Platelet Volume 11.4 FL (9.6-12.0); Monocytes % 19.6 % (1.7-12.7); Neutrophils % 56.5 % (38.7-73.9); Platelet Count 106 T/CUMM (130-400); Red Blood Count 2.76 MC/CUMM (3.8-5.5); Red Cell Distribution Width 15.9 % (9.3-17.3); White Blood Count 5.1 T/CUMM (4-12)
[2019-05-19 04:56] LABS: Eosinophils 2 % (0-10); Hypochromasia 1+; Lymphocytes 14 % (20-55); Ovalocytes Slight; Platelet Estimate Decreased; Segmented Neutrophils 63 % (50-85); Total Cells Counted 100
[2019-05-19] MEDS: FERROUS SULFATE 325 MG TABLET PO SCH (09:09)
[2019-05-19] MEDS: METOCLOPRAMIDE 5 MG TABLET PO SCH ×4 (09:09→21:13)
[2019-05-19] MEDS: SEVELAMER CARBONATE 800 MG TABLET PO SCH ×3 (09:09→21:12)
[2019-05-19] MEDS: MULTIVITAMIN (BEROCCA) TABLET PO SCH (09:09)
[2019-05-19] MEDS: PANTOPRAZOLE 40 MG TABLET PO SCH (09:10)
[2019-05-19] MEDS: INSULIN REGULAR 100 UNIT/ML SUBCUT SCH ×4 (09:10→21:20)
[2019-05-19] MEDS ORDERED: VANCOMYCIN INJ 500 MG in SODIUM CHLORIDE 0.9% 100 ML IV ONE (17:00)
[2019-05-19] MEDS: LATANOPROST 0.005% OPH SOLN 2.5 ML BOTTLE BOTH EYES SCH (21:30)
[2019-05-20] MEDS ORDERED: CLINDAMYCIN INJ 900 MG in PREMIX 1 EACH IV ONE (06:00)
[2019-05-20 06:44] LABS: Basophils # 0.1 10*3/uL (0.0-0.2); Basophils % 0.8 % (0.0-0.8); Eosinophils # 0.3 10*3/uL (0.0-0.87); Eosinophils % 4.3 % (0.00-10.9); Hematocrit 28.9 VOL% (35.7-47.0); Hemoglobin 8.9 GM/DL (12.0-16.0); Immature Granulocytes % 0.5 %; Immature Granulocytes Absolute 0.03 #; Lymphocytes # 0.9 10*3/uL (1.4-4.0); Lymphocytes % 13.6 % (21.3-54.2); Mean Corpuscular HGB Conc 30.8 GM/DL (32-36); Mean Corpuscular Volume 97.3 FL (87-102); Mean Platelet Volume 11.7 FL (9.6-12.0); Monocytes % 15.2 % (1.7-12.7); Neutrophils % 65.6 % (38.7-73.9); Platelet Count 117 T/CUMM (130-400); Red Blood Count 2.97 MC/CUMM (3.8-5.5); Red Cell Distribution Width 15.9 % (9.3-17.3); White Blood Count 6.3 T/CUMM (4-12)
[2019-05-20 07:06] LABS: Calcium 9.9 MG/DL (8.5-10.1); Osmolality,Calculated 285.7 MOS/KG (273-304)
[2019-05-20] MEDS: INSULIN REGULAR 100 UNIT/ML SUBCUT SCH ×4 (09:50→21:18)
[2019-05-20] MEDS: FERROUS SULFATE 325 MG TABLET PO SCH ×2 (09:50→16:51)
[2019-05-20] MEDS: CEFEPIME 1,000 MG in SODIUM CHLORIDE 0.9% 100 ML IV SCH (09:50)
[2019-05-20] MEDS: SEVELAMER CARBONATE 800 MG TABLET PO SCH ×3 (10:02→16:27)
[2019-05-20] MEDS: PANTOPRAZOLE 40 MG TABLET PO SCH (10:02)
[2019-05-20] MEDS: METOCLOPRAMIDE 5 MG TABLET PO SCH ×4 (10:02→21:09)
[2019-05-20] MEDS: MULTIVITAMIN (BEROCCA) TABLET PO SCH (10:02)
[2019-05-20] MEDS ORDERED: CLINDAMYCIN INJ 50 ML IV ONE (10:17)
[2019-05-20] MEDS ORDERED: LIDOCAINE 2% 5 ML VIAL ONE (11:55)
[2019-05-20] MEDS ORDERED: propofoL 200 MG/20 ML VIAL IV ONE (11:55)
[2019-05-20] MEDS ORDERED: fentaNYL 100 MCG/2 ML VIAL ONE (11:55)
[2019-05-20] MEDS ORDERED: SEVOFLURANE 1 UNIT/15 MINUTE INH ONE (11:55)
[2019-05-20] MEDS ORDERED: ONDANSETRON 4 MG/2 ML VIAL ONE (11:56)
[2019-05-20] MEDS ORDERED: PHENYLEPHRINE 1 MG/10 ML SYRINGE IV ONE (11:56)
[2019-05-20] MEDS ORDERED: MIDAZOLAM 2 MG/2 ML VIAL ONE (11:56)
[2019-05-20] MEDS: HYDROmorphone 2 MG/1 ML VIAL IV PRN ×3 (12:05→12:26)
[2019-05-20] MEDS ORDERED: ONDANSETRON 4 MG/2 ML VIAL IV PRN (12:06)
[2019-05-20] MEDS ORDERED: CEFEPIME 1,000 MG in SODIUM CHLORIDE 0.9% 100 ML IV ONE (17:00)
[2019-05-20] MEDS ORDERED: ZALEPLON 5 MG CAPSULE PO PRN (18:20)
[2019-05-20] MEDS: LATANOPROST 0.005% OPH SOLN 2.5 ML BOTTLE BOTH EYES SCH (21:33)
[2019-05-20] MEDS: MORPHINE 4 MG/1 ML VIAL IV PRN (23:40)
[2019-05-21] MEDS: MORPHINE 4 MG/1 ML VIAL IV PRN ×2 (05:23→14:16)
[2019-05-21 05:50] LABS: Calcium 9.5 MG/DL (8.5-10.1); Osmolality,Calculated 290.5 MOS/KG (273-304)
[2019-05-21 06:01] LABS: Basophils # 0.1 10*3/uL (0.0-0.2); Basophils % 1.1 % (0.0-0.8); Eosinophils # 0.3 10*3/uL (0.0-0.87); Eosinophils % 3.8 % (0.00-10.9); Hematocrit 23.8 VOL% (35.7-47.0); Hemoglobin 7.2 GM/DL (12.0-16.0); Immature Granulocytes % 0.9 %; Immature Granulocytes Absolute 0.06 #; Lymphocytes % 15.5 % (21.3-54.2); Mean Corpuscular HGB Conc 30.3 GM/DL (32-36); Mean Corpuscular Volume 100.8 FL (87-102); Mean Platelet Volume 11.2 FL (9.6-12.0); Monocytes % 14.7 % (1.7-12.7); Platelet Count 120 T/CUMM (130-400); Red Blood Count 2.36 MC/CUMM (3.8-5.5); Red Cell Distribution Width 15.7 % (9.3-17.3); White Blood Count 6.5 T/CUMM (4-12)
[2019-05-21] MEDS: INSULIN REGULAR 100 UNIT/ML SUBCUT SCH ×4 (08:08→20:52)
[2019-05-21] MEDS: METOCLOPRAMIDE 5 MG TABLET PO SCH ×4 (08:08→20:53)
[2019-05-21] MEDS: PANTOPRAZOLE 40 MG TABLET PO SCH (08:09)
[2019-05-21] MEDS: FERROUS SULFATE 325 MG TABLET PO SCH ×2 (08:09→17:05)
[2019-05-21] MEDS: GABAPENTIN 100 MG CAPSULE PO SCH ×2 (08:09→20:53)
[2019-05-21] MEDS: SEVELAMER CARBONATE 800 MG TABLET PO SCH ×3 (08:09→17:05)
[2019-05-21] MEDS: MULTIVITAMIN (BEROCCA) TABLET PO SCH (08:09)
[2019-05-21] MEDS ORDERED: SODIUM CHLORIDE 0.9% 1,000 ML IV PRN (09:49)
[2019-05-21] MEDS: LATANOPROST 0.005% OPH SOLN 2.5 ML BOTTLE BOTH EYES SCH (20:57)
[2019-05-22 05:21] LABS: Basophils # 0.1 10*3/uL (0.0-0.2); Basophils % 0.6 % (0.0-0.8); Eosinophils # 0.2 10*3/uL (0.0-0.87); Eosinophils % 2.4 % (0.00-10.9); Hematocrit 26.5 VOL% (35.7-47.0); Hemoglobin 8.2 GM/DL (12.0-16.0); Immature Granulocytes % 1.1 %; Lymphocytes # 1.2 10*3/uL (1.4-4.0); Lymphocytes % 13.4 % (21.3-54.2); Mean Corpuscular HGB Conc 30.9 GM/DL (32-36); Mean Corpuscular Volume 103.1 FL (87-102); Mean Platelet Volume 12.2 FL (9.6-12.0); Monocytes % 15.7 % (1.7-12.7); Neutrophils % 66.8 % (38.7-73.9); Platelet Count 88 T/CUMM (130-400); Red Blood Count 2.57 MC/CUMM (3.8-5.5); Red Cell Distribution Width 15.7 % (9.3-17.3); White Blood Count 8.7 T/CUMM (4-12)
[2019-05-22 06:00] LABS: Eosinophils 3 % (0-10); Lymphocytes 13 % (20-55); Myelocytes 1 %; Segmented Neutrophils 71 % (50-85); Total Cells Counted 100
[2019-05-22 06:01] LABS: Macrocytosis Slight; Platelet Estimate Decreased
[2019-05-22] MEDS: MULTIVITAMIN (BEROCCA) TABLET PO SCH (08:46)
[2019-05-22] MEDS: SEVELAMER CARBONATE 800 MG TABLET PO SCH (08:46)
[2019-05-22] MEDS: GABAPENTIN 100 MG CAPSULE PO SCH (08:46)
[2019-05-22] MEDS: PANTOPRAZOLE 40 MG TABLET PO SCH (08:46)
[2019-05-22] MEDS: METOCLOPRAMIDE 5 MG TABLET PO SCH (08:46)
[2019-05-22] MEDS: FERROUS SULFATE 325 MG TABLET PO SCH (08:46)
[2019-05-22] MEDS: INSULIN REGULAR 100 UNIT/ML SUBCUT SCH ×2 (08:46→11:50)
[2019-05-22 09:42] VITALS: BP 115/46
== END 2019-05-22 12:18 | DRG 239 ==
LOC: N.ED 23:27 → SUATTDRO 05-16 02:12 → N.EDINP 05-16 02:12 → N.5E 05-16 02:59
PROVIDERS: ADMIT Internal Medicine; ATTEND Internal Medicine

== ENCOUNTER 2019-07-11 00:45 | Inpatient (IN) ==
[2019-07-11] MEDS ORDERED: LACTULOSE 20 GM/30 ML UDCUP PO PRN (02:47)
[2019-07-11] MEDS ORDERED: DEXTROSE 50% 25 GM/50 ML SYRINGE IV PRN (02:47)
[2019-07-11] MEDS ORDERED: GLUCAGON 1 MG VIAL IM PRN ×2 (02:47)
[2019-07-11] MEDS ORDERED: DEXTROSE 50% 25 GM/50 ML VIAL IV PRN (02:47)
[2019-07-11] MEDS: ENOXAPARIN 30 MG/0.3 ML SYRINGE SUBCUT SCH (03:28)
[2019-07-11] MEDS: cefTRIAXone 1,000 MG in SYRINGE 1 EACH IV SCH (03:35)
[2019-07-11] MEDS: AZITHROMYCIN INJ 500 MG in SODIUM CHLORIDE 0.9% 250 ML IV SCH (03:40)
[2019-07-11 04:24] LABS: Basophils % 0.2 % (0.0-0.8); Hematocrit 22.3 VOL% (35.7-47.0); Hemoglobin 6.5 GM/DL (12.0-16.0); Immature Granulocytes % 0.5 %; Immature Granulocytes Absolute 0.03 #; Lymphocytes # 0.5 10*3/uL (1.4-4.0); Lymphocytes % 9.8 % (21.3-54.2); Mean Corpuscular HGB Conc 29.1 GM/DL (32-36); Mean Corpuscular Volume 97.4 FL (87-102); Mean Platelet Volume 12.2 FL (9.6-12.0); Monocytes % 11.5 % (1.7-12.7); Platelet Count 55 T/CUMM (130-400); Red Blood Count 2.29 MC/CUMM (3.8-5.5); Red Cell Distribution Width 15.9 % (9.3-17.3); White Blood Count 5.5 T/CUMM (4-12)
[2019-07-11 05:00] LABS: Lymphocytes 10 % (20-55); Segmented Neutrophils 80 % (50-85); Total Cells Counted 100
[2019-07-11 05:01] LABS: Anisocytosis 1+; Ovalocytes 1+; Platelet Estimate Decreased
[2019-07-11 05:25] LABS: Alanine Aminotransferase < 9 U/L (13-56); Albumin 1.3 G/DL (3.4-5.0); Alkaline Phosphatase 76 U/L (45-117); Aspartate Amino Transferase 30 U/L (0-37); Blood Urea Nitrogen 18 MG/DL (7-18); Estimated Glom Filtration Rate 20 ML/MIN; Glucose 63 MG/DL (74-106); Osmolality,Calculated 300.7 MOS/KG (273-304); Total Protein 3.9 G/DL (6.4-8.3)
[2019-07-11 05:35] LABS: Calcium 5.1 MG/DL (8.5-10.1)
[2019-07-11] MEDS ORDERED: INSULIN REGULAR 100 UNIT/ML SUBCUT SCH (07:30)
[2019-07-11] MEDS ORDERED: POTASSIUM CHLORIDE RIDER 10 MEQ in PREMIX 1 EACH IV PRN (07:49)
[2019-07-11] MEDS: PANTOPRAZOLE 40 MG TABLET PO SCH (08:14)
[2019-07-11 08:41] LABS: Basophils % 0.3 % (0.0-0.8); Eosinophils % 0.2 % (0.00-10.9); Hematocrit 25.4 VOL% (35.7-47.0); Hemoglobin 7.2 GM/DL (12.0-16.0); Immature Granulocytes % 0.5 %; Immature Granulocytes Absolute 0.03 #; Lymphocytes # 0.8 10*3/uL (1.4-4.0); Lymphocytes % 12.9 % (21.3-54.2); Mean Corpuscular HGB Conc 28.3 GM/DL (32-36); Mean Corpuscular Volume 100.4 FL (87-102); Monocytes % 8.5 % (1.7-12.7); Neutrophils % 77.6 % (38.7-73.9); Platelet Count 75 T/CUMM (130-400); Red Blood Count 2.53 MC/CUMM (3.8-5.5); Red Cell Distribution Width 16.2 % (9.3-17.3)
[2019-07-11] MEDS: INSULIN REGULAR 100 UNIT/ML SUBCUT SCH ×4 (08:59→20:27)
[2019-07-11 09:00] LABS: Bilirubin,Total 0.7 MG/DL (0.2-1.0); Calcium 7.5 MG/DL (8.5-10.1); Osmolality,Calculated 282.4 MOS/KG (273-304); Total Protein 5.9 G/DL (6.4-8.3)
[2019-07-11] MEDS ORDERED: HYDROXYCHLOROQUINE 200 MG TABLET PO SCH ×2 (09:00)
[2019-07-11 09:18] LABS: Platelet Estimate Decreased
[2019-07-11 09:19] LABS: Anisocytosis 1+; Poikilocytosis Slight; Polychromasia Slight
[2019-07-11 09:20] LABS: Misc Morphology 51
[2019-07-11] MEDS: ZINC SULFATE 220 MG CAPSULE PO SCH (09:46)
[2019-07-11] MEDS ORDERED: CALCIUM GLUCONATE 1,000 MG in SODIUM CHLORIDE 0.9% 100 ML IV ONE (10:00)
[2019-07-11] MEDS: DESITIN 4OZ/NYSTATIN 15 GRAM MIXTURE PASTE TOP SCH ×2 (14:42→20:28)
[2019-07-12] MEDS: cefTRIAXone 1,000 MG in SYRINGE 1 EACH IV SCH (02:50)
[2019-07-12] MEDS: AZITHROMYCIN INJ 500 MG in SODIUM CHLORIDE 0.9% 250 ML IV SCH (02:53)
[2019-07-12] MEDS: ENOXAPARIN 30 MG/0.3 ML SYRINGE SUBCUT SCH (03:45)
[2019-07-12 04:50] LABS: ABG Base Excess 1.3 MMOL/L (-2.5-2.5); ABG HCO3 25.5 MMOL/L (20-26); ABG Oxygen Saturation 92.3 % (95-100); ABG PCO2 45.4 MM HG (35-48); ABG PH 7.378 (7.35-7.45); ABG PO2 69.5 MM HG (80-95); ABG TCO2 24.7 MMOL/L (23-27); Allen Test Positive; Pt O2 Delivery Device Other
[2019-07-12 05:16] LABS: Basophils % 0.3 % (0.0-0.8); Eosinophils % 0.6 % (0.00-10.9); Hematocrit 30.5 VOL% (35.7-47.0); Hemoglobin 9.1 GM/DL (12.0-16.0); Immature Granulocytes % 0.4 %; Immature Granulocytes Absolute 0.03 #; Mean Corpuscular HGB Conc 29.8 GM/DL (32-36); Mean Corpuscular Volume 94.4 FL (87-102); Mean Platelet Volume 12.9 FL (9.6-12.0); Monocytes % 6.7 % (1.7-12.7); NRBC # 0.02 10*3/uL; Platelet Count 99 T/CUMM (130-400); Red Blood Count 3.23 MC/CUMM (3.8-5.5); Red Cell Distribution Width 16.1 % (9.3-17.3); White Blood Count 6.9 T/CUMM (4-12)
[2019-07-12 05:36] LABS: Calcium 8.6 MG/DL (8.5-10.1); Osmolality,Calculated 282.7 MOS/KG (273-304)
[2019-07-12] MEDS: INSULIN REGULAR 100 UNIT/ML SUBCUT SCH ×4 (07:44→20:50)
[2019-07-12] MEDS: PANTOPRAZOLE 40 MG TABLET PO SCH (08:26)
[2019-07-12] MEDS: DESITIN 4OZ/NYSTATIN 15 GRAM MIXTURE PASTE TOP SCH ×2 (08:26→20:50)
[2019-07-12] MEDS ORDERED: HYDROXYCHLOROQUINE 200 MG TABLET PO SCH ×2 (09:00)
[2019-07-12 09:06] LABS: Band Neutrophils 2 % (0-10); Hypochromasia Slight; Lymphocytes 18 % (20-55); Platelet Estimate Adequate; Schistocytes Slight; Segmented Neutrophils 74 % (50-85); Total Cells Counted 100
[2019-07-12] MEDS: SEVELAMER CARBONATE 800 MG TABLET PO SCH ×2 (13:15→16:15)
[2019-07-12] MEDS: FERROUS SULFATE 325 MG TABLET PO SCH ×2 (16:15→20:50)
[2019-07-12] MEDS: ACETAMINOPHEN 325 MG TABLET PO PRN (18:34)
[2019-07-12] MEDS: APIXABAN 2.5 MG TABLET PO SCH (20:50)
[2019-07-12] MEDS: LATANOPROST 0.005% OPH SOLN 2.5 ML BOTTLE BOTH EYES SCH (20:50)
[2019-07-12] MEDS ORDERED: ETOMIDATE 20 MG/10 ML VIAL IV ONE (23:20)
[2019-07-12] MEDS ORDERED: VECURONIUM 10 MG VIAL IV ONE (23:20)
[2019-07-13] MEDS ORDERED: ETOMIDATE 20 MG/10 ML VIAL IV ONE (00:09)
[2019-07-13] MEDS ORDERED: VECURONIUM 10 MG VIAL IV ONE (00:09)
[2019-07-13 00:40] LABS: ABG Base Excess 0.4 MMOL/L (-2.5-2.5); ABG HCO3 24.8 MMOL/L (20-26); ABG Oxygen Saturation 97.5 % (95-100); ABG PCO2 48.6 MM HG (35-48); ABG PH 7.345 (7.35-7.45); ABG TCO2 24.4 MMOL/L (23-27); Allen Test Positive; Pt O2 Delivery Device Ventilator
[2019-07-13] MEDS: cefTRIAXone 1,000 MG in SYRINGE 1 EACH IV SCH (03:38)
[2019-07-13 04:42] LABS: ABG Base Excess 1.9 MMOL/L (-2.5-2.5); ABG HCO3 26.1 MMOL/L (20-26); ABG Oxygen Saturation 98.7 % (95-100); ABG PCO2 40.8 MM HG (35-48); Allen Test Positive; Pt O2 Delivery Device Ventilator
[2019-07-13] MEDS: ZINC SULFATE 220 MG CAPSULE PO SCH (08:51)
[2019-07-13] MEDS: SEVELAMER CARBONATE 800 MG TABLET PO SCH ×3 (08:51→16:32)
[2019-07-13] MEDS: FERROUS SULFATE 325 MG TABLET PO SCH ×3 (08:51→21:44)
[2019-07-13] MEDS: PANTOPRAZOLE 40 MG TABLET PO SCH (08:51)
[2019-07-13] MEDS: DESITIN 4OZ/NYSTATIN 15 GRAM MIXTURE PASTE TOP SCH ×2 (08:51→21:44)
[2019-07-13] MEDS: APIXABAN 2.5 MG TABLET PO SCH ×2 (08:51→21:44)
[2019-07-13] MEDS: INSULIN REGULAR 100 UNIT/ML SUBCUT SCH ×4 (08:52→17:01)
[2019-07-13] MEDS: AZITHROMYCIN 250 MG TABLET PO SCH (08:52)
[2019-07-13] MEDS: PIPERACILLIN/TAZOBACTAM 3,375 MG in SODIUM CHLORIDE 0.9% 100 ML IV SCH (14:19)
[2019-07-13] MEDS: NOREPINEPHRINE 8 MG in SODIUM CHLORIDE 0.9% 242 ML IV PRN (20:15)
[2019-07-13] MEDS: LATANOPROST 0.005% OPH SOLN 2.5 ML BOTTLE BOTH EYES SCH (21:44)
[2019-07-14] MEDS: ACETAMINOPHEN 325 MG TABLET PO PRN (00:40)
[2019-07-14] MEDS: INSULIN REGULAR 100 UNIT/ML SUBCUT SCH ×4 (00:42→17:15)
[2019-07-14 04:40] LABS: ABG Base Excess 0.4 MMOL/L (-2.5-2.5); ABG HCO3 24.8 MMOL/L (20-26); ABG Oxygen Saturation 95.3 % (95-100); ABG PCO2 42.7 MM HG (35-48); ABG PH 7.385 (7.35-7.45); ABG PO2 83.3 MM HG (80-95); ABG TCO2 23.4 MMOL/L (23-27); Allen Test Positive; Pt O2 Delivery Device Ventilator
[2019-07-14] MEDS: PIPERACILLIN/TAZOBACTAM 3,375 MG in SODIUM CHLORIDE 0.9% 100 ML IV SCH ×2 (05:20→14:42)
[2019-07-14 06:53] LABS: Basophils % 0.2 % (0.0-0.8); Eosinophils # 0.1 10*3/uL (0.0-0.87); Eosinophils % 1.1 % (0.00-10.9); Hematocrit 32.1 VOL% (35.7-47.0); Hemoglobin 9.5 GM/DL (12.0-16.0); Immature Granulocytes % 1.2 %; Immature Granulocytes Absolute 0.13 #; Lymphocytes # 1.1 10*3/uL (1.4-4.0); Lymphocytes % 9.7 % (21.3-54.2); Mean Corpuscular HGB Conc 29.6 GM/DL (32-36); Mean Corpuscular Volume 96.4 FL (87-102); Mean Platelet Volume 11.8 FL (9.6-12.0); Monocytes % 6.9 % (1.7-12.7); NRBC # 0.04 10*3/uL; Neutrophils % 80.9 % (38.7-73.9); Platelet Count 97 T/CUMM (130-400); Red Blood Count 3.33 MC/CUMM (3.8-5.5); Red Cell Distribution Width 16.2 % (9.3-17.3); White Blood Count 10.9 T/CUMM (4-12)
[2019-07-14 07:16] LABS: Calcium 8.7 MG/DL (8.5-10.1); Osmolality,Calculated 276.1 MOS/KG (273-304)
[2019-07-14 07:17] LABS: Calcium 8.3 MG/DL (8.5-10.1)
[2019-07-14 07:20] LABS: Band Neutrophils 4 % (0-10); Hypochromasia 1+; Lymphocytes 12 % (20-55); Nucleated Red Blood Cells 1 (0-5); Segmented Neutrophils 79 % (50-85); Total Cells Counted 100
[2019-07-14 07:21] LABS: Anisocytosis 1+; Ovalocytes Few
[2019-07-14 07:22] LABS: Platelet Estimate Decreased
[2019-07-14] MEDS: AZITHROMYCIN 250 MG TABLET PO SCH (08:03)
[2019-07-14] MEDS: FERROUS SULFATE 325 MG TABLET PO SCH ×3 (08:03→21:30)
[2019-07-14] MEDS: APIXABAN 2.5 MG TABLET PO SCH ×2 (08:03→21:30)
[2019-07-14] MEDS: SEVELAMER CARBONATE 800 MG TABLET PO SCH ×3 (08:03→16:18)
[2019-07-14] MEDS: PANTOPRAZOLE 40 MG VIAL IV SCH (08:03)
[2019-07-14] MEDS: DESITIN 4OZ/NYSTATIN 15 GRAM MIXTURE PASTE TOP SCH ×2 (08:06→21:30)
[2019-07-14] MEDS: HYDROXYCHLOROQUINE 200 MG TABLET PO SCH ×2 (11:09→21:30)
[2019-07-14] MEDS: LATANOPROST 0.005% OPH SOLN 2.5 ML BOTTLE BOTH EYES SCH (21:30)
[2019-07-15] MEDS: INSULIN REGULAR 100 UNIT/ML SUBCUT SCH ×4 (00:35→17:26)
[2019-07-15] MEDS: PIPERACILLIN/TAZOBACTAM 3,375 MG in SODIUM CHLORIDE 0.9% 100 ML IV SCH (01:36)
[2019-07-15 04:17] LABS: ABG Base Excess -0.9 MMOL/L (-2.5-2.5); ABG HCO3 25.6 MMOL/L (20-26); ABG Oxygen Saturation 43.4 % (95-100); ABG PCO2 51.4 MM HG (35-48); ABG PH 7.315 (7.35-7.45); ABG TCO2 27.2 MMOL/L (23-27)
[2019-07-15 04:43] LABS: ABG PO2 29.1 MM HG (80-95)
[2019-07-15 06:54] LABS: Basophils % 0.3 % (0.0-0.8); Eosinophils # 0.1 10*3/uL (0.0-0.87); Eosinophils % 0.7 % (0.00-10.9); Hematocrit 30.8 VOL% (35.7-47.0); Hemoglobin 9.3 GM/DL (12.0-16.0); Immature Granulocytes % 1.6 %; Immature Granulocytes Absolute 0.19 #; Lymphocytes # 0.8 10*3/uL (1.4-4.0); Lymphocytes % 6.8 % (21.3-54.2); Mean Corpuscular HGB Conc 30.2 GM/DL (32-36); Mean Corpuscular Volume 94.8 FL (87-102); Mean Platelet Volume 12.4 FL (9.6-12.0); Monocytes % 5.2 % (1.7-12.7); NRBC # 0.06 10*3/uL; Neutrophils % 85.4 % (38.7-73.9); Red Blood Count 3.25 MC/CUMM (3.8-5.5); Red Cell Distribution Width 16.3 % (9.3-17.3); White Blood Count 11.6 T/CUMM (4-12)
[2019-07-15 06:56] LABS: Platelet Count 83 T/CUMM (130-400)
[2019-07-15 07:01] LABS: Albumin 1.8 G/DL (3.4-5.0); Calcium 8.8 MG/DL (8.5-10.1); Calcium 8.9 MG/DL (8.5-10.1); Osmolality,Calculated 279.2 MOS/KG (273-304); Osmolality,Calculated 281.1 MOS/KG (273-304)
[2019-07-15 07:20] LABS: Hypochromasia 1+; Ovalocytes Slight; Platelet Estimate Decreased
[2019-07-15] MEDS: PHENYLEPHRINE DRIP 40 MG/250 ML PREMIX IV PRN (08:10)
[2019-07-15] MEDS: PANTOPRAZOLE 40 MG VIAL IV SCH (09:10)
[2019-07-15] MEDS: SEVELAMER CARBONATE 800 MG TABLET PO SCH ×3 (09:12→17:26)
[2019-07-15] MEDS: HYDROXYCHLOROQUINE 200 MG TABLET PO SCH ×2 (09:12→21:15)
[2019-07-15] MEDS: DESITIN 4OZ/NYSTATIN 15 GRAM MIXTURE PASTE TOP SCH ×2 (09:12→21:15)
[2019-07-15] MEDS: MULTIVITAMIN (BEROCCA) TABLET PO SCH (09:12)
[2019-07-15] MEDS: APIXABAN 2.5 MG TABLET PO SCH ×4 (09:12→21:15)
[2019-07-15] MEDS: FERROUS SULFATE 325 MG TABLET PO SCH ×3 (09:12→21:15)
[2019-07-15] MEDS: ZINC SULFATE 220 MG CAPSULE PO SCH (09:13)
[2019-07-15] MEDS: AZITHROMYCIN 250 MG TABLET PO SCH (09:13)
[2019-07-15] MEDS: NOREPINEPHRINE 8 MG in SODIUM CHLORIDE 0.9% 242 ML IV PRN (09:40)
[2019-07-15] MEDS ORDERED: DIGOXIN 0.5 MG/2 ML AMP IV ONE ×2 (10:17→11:15)
[2019-07-15] MEDS: LATANOPROST 0.005% OPH SOLN 2.5 ML BOTTLE BOTH EYES SCH (21:15)
[2019-07-16] MEDS: INSULIN REGULAR 100 UNIT/ML SUBCUT SCH ×4 (00:52→17:08)
[2019-07-16] MEDS: NOREPINEPHRINE 8 MG in SODIUM CHLORIDE 0.9% 242 ML IV PRN (02:05)
[2019-07-16] MEDS: PHENYLEPHRINE DRIP 40 MG/250 ML PREMIX IV PRN ×7 (03:24→22:54)
[2019-07-16 04:43] LABS: ABG Base Excess -4.2 MMOL/L (-2.5-2.5); ABG HCO3 20.7 MMOL/L (20-26); ABG Oxygen Saturation 88.6 % (95-100); ABG PCO2 42.9 MM HG (35-48); ABG PH 7.316 (7.35-7.45); ABG TCO2 19.4 MMOL/L (23-27)
[2019-07-16 05:12] LABS: Calcium 9.6 MG/DL (8.5-10.1); Osmolality,Calculated 285.1 MOS/KG (273-304)
[2019-07-16 05:22] LABS: Albumin 1.9 G/DL (3.4-5.0); Calcium 9.4 MG/DL (8.5-10.1); Osmolality,Calculated 285.1 MOS/KG (273-304)
[2019-07-16 05:37] LABS: Basophils # 0.1 10*3/uL (0.0-0.2); Basophils % 0.4 % (0.0-0.8); Eosinophils # 0.1 10*3/uL (0.0-0.87); Eosinophils % 0.2 % (0.00-10.9); Hematocrit 41.7 VOL% (35.7-47.0); Hemoglobin 12.5 GM/DL (12.0-16.0); Immature Granulocytes % 1.5 %; Immature Granulocytes Absolute 0.34 #; Lymphocytes % 4.7 % (21.3-54.2); Mean Platelet Volume 13.2 FL (9.6-12.0); Monocytes % 4.6 % (1.7-12.7); NRBC # 0.13 10*3/uL; Neutrophils % 88.6 % (38.7-73.9); Platelet Count 103 T/CUMM (130-400); Red Blood Count 4.39 MC/CUMM (3.8-5.5); Red Cell Distribution Width 16.4 % (9.3-17.3); White Blood Count 22.2 T/CUMM (4-12)
[2019-07-16 06:09] LABS: Band Neutrophils 1 % (0-10); Eosinophils 1 % (0-10); Hypochromasia 1+; Lymphocytes 3 % (20-55); Nucleated Red Blood Cells 1 (0-5); Ovalocytes Slight; Platelet Estimate Decreased; Segmented Neutrophils 92 % (50-85); Total Cells Counted 100
[2019-07-16] MEDS: SEVELAMER CARBONATE 800 MG TABLET PO SCH ×3 (08:45→16:00)
[2019-07-16] MEDS: MULTIVITAMIN (BEROCCA) TABLET PO SCH (08:45)
[2019-07-16] MEDS: HYDROXYCHLOROQUINE 200 MG TABLET PO SCH ×2 (08:45→21:50)
[2019-07-16] MEDS: APIXABAN 2.5 MG TABLET PO SCH ×2 (08:45→21:50)
[2019-07-16] MEDS: PANTOPRAZOLE 40 MG VIAL IV SCH (08:45)
[2019-07-16] MEDS: AZITHROMYCIN 250 MG TABLET PO SCH (08:45)
[2019-07-16] MEDS: DESITIN 4OZ/NYSTATIN 15 GRAM MIXTURE PASTE TOP SCH ×2 (08:45→21:50)
[2019-07-16] MEDS: FERROUS SULFATE 325 MG TABLET PO SCH ×3 (08:45→21:50)
[2019-07-16] MEDS: LATANOPROST 0.005% OPH SOLN 2.5 ML BOTTLE BOTH EYES SCH (21:50)
[2019-07-17] MEDS: INSULIN REGULAR 100 UNIT/ML SUBCUT SCH ×4 (00:56→18:05)
[2019-07-17] MEDS: PHENYLEPHRINE DRIP 40 MG/250 ML PREMIX IV PRN ×10 (02:24→22:52)
[2019-07-17 04:22] LABS: ABG Base Excess -7.6 MMOL/L (-2.5-2.5); ABG HCO3 18.1 MMOL/L (20-26); ABG Oxygen Saturation 86.3 % (95-100); ABG PH 7.246 (7.35-7.45); ABG PO2 62.7 MM HG (80-95); ABG TCO2 18.2 MMOL/L (23-27)
[2019-07-17 04:28] LABS: Basophils # 0.1 10*3/uL (0.0-0.2); Basophils % 0.3 % (0.0-0.8); Eosinophils # 0.1 10*3/uL (0.0-0.87); Eosinophils % 0.7 % (0.00-10.9); Hematocrit 32.8 VOL% (35.7-47.0); Hemoglobin 9.8 GM/DL (12.0-16.0); Immature Granulocytes % 1.7 %; Immature Granulocytes Absolute 0.25 #; Lymphocytes # 0.9 10*3/uL (1.4-4.0); Lymphocytes % 5.9 % (21.3-54.2); Mean Corpuscular HGB Conc 29.9 GM/DL (32-36); Mean Corpuscular Volume 93.7 FL (87-102); Mean Platelet Volume 12.7 FL (9.6-12.0); Monocytes % 3.7 % (1.7-12.7); NRBC # 0.14 10*3/uL; Neutrophils % 87.7 % (38.7-73.9); Platelet Count 75 T/CUMM (130-400); Red Cell Distribution Width 16.8 % (9.3-17.3); White Blood Count 14.8 T/CUMM (4-12)
[2019-07-17 04:36] LABS: Calcium 9.5 MG/DL (8.5-10.1); Osmolality,Calculated 289.1 MOS/KG (273-304)
[2019-07-17 04:53] LABS: Burr Cells Slight; Hypochromasia 1+; Lymphocytes 2 % (20-55); Nucleated Red Blood Cells 2 (0-5); Ovalocytes Slight; Platelet Estimate Decreased; Segmented Neutrophils 95 % (50-85); Total Cells Counted 100
[2019-07-17] MEDS: PANTOPRAZOLE 40 MG VIAL IV SCH (08:37)
[2019-07-17] MEDS: FERROUS SULFATE 325 MG TABLET PO SCH ×3 (08:38→20:45)
[2019-07-17] MEDS: HYDROXYCHLOROQUINE 200 MG TABLET PO SCH ×2 (08:38→20:45)
[2019-07-17] MEDS: APIXABAN 2.5 MG TABLET PO SCH ×2 (08:38→20:45)
[2019-07-17] MEDS: SEVELAMER CARBONATE 800 MG TABLET PO SCH ×3 (08:38→16:53)
[2019-07-17] MEDS: DESITIN 4OZ/NYSTATIN 15 GRAM MIXTURE PASTE TOP SCH ×2 (08:38→20:45)
[2019-07-17] MEDS: MULTIVITAMIN (BEROCCA) TABLET PO SCH (08:38)
[2019-07-17 12:21] LABS: ABG Base Excess -7.8 MMOL/L (-2.5-2.5); ABG HCO3 18.1 MMOL/L (20-26); ABG Oxygen Saturation 93.7 % (95-100); ABG PCO2 40.7 MM HG (35-48); ABG PH 7.271 (7.35-7.45); ABG PO2 81.8 MM HG (80-95); ABG TCO2 17.3 MMOL/L (23-27)
[2019-07-17] MEDS ORDERED: HEPARIN 10,000 UNIT/10 ML VIAL IV SCH (19:45)
[2019-07-17] MEDS: LATANOPROST 0.005% OPH SOLN 2.5 ML BOTTLE BOTH EYES SCH (20:45)
[2019-07-17] MEDS: NOREPINEPHRINE 8 MG in SODIUM CHLORIDE 0.9% 242 ML IV PRN (20:55)
[2019-07-18] MEDS: INSULIN REGULAR 100 UNIT/ML SUBCUT SCH ×4 (00:05→17:54)
[2019-07-18] MEDS: PHENYLEPHRINE DRIP 40 MG/250 ML PREMIX IV PRN ×8 (00:55→15:21)
[2019-07-18] MEDS ORDERED: ROCURONIUM 500 MG in SODIUM CHLORIDE 0.9% 500 ML IV PRN (03:02)
[2019-07-18] MEDS ORDERED: fentaNYL INJ 1,250 MCG in SODIUM CHLORIDE 0.9% 225 ML IV PRN (03:02)
[2019-07-18 05:03] LABS: ABG Base Excess -8.5 MMOL/L (-2.5-2.5); ABG HCO3 17.6 MMOL/L (20-26); ABG Oxygen Saturation 97.3 % (95-100); ABG PCO2 44.6 MM HG (35-48); ABG PH 7.233 (7.35-7.45); ABG TCO2 17.5 MMOL/L (23-27)
[2019-07-18 05:32] LABS: Calcium 9.5 MG/DL (8.5-10.1); Osmolality,Calculated 284.2 MOS/KG (273-304)
[2019-07-18 05:34] LABS: Basophils # 0.1 10*3/uL (0.0-0.2); Basophils % 0.4 % (0.0-0.8); Eosinophils % 0.2 % (0.00-10.9); Hematocrit 30.8 VOL% (35.7-47.0); Hemoglobin 9.3 GM/DL (12.0-16.0); Immature Granulocytes % 2.2 %; Lymphocytes # 0.5 10*3/uL (1.4-4.0); Lymphocytes % 3.4 % (21.3-54.2); Mean Corpuscular HGB Conc 30.2 GM/DL (32-36); Mean Corpuscular Volume 95.1 FL (87-102); Monocytes % 4.1 % (1.7-12.7); Neutrophils % 89.7 % (38.7-73.9); Red Blood Count 3.24 MC/CUMM (3.8-5.5); Red Cell Distribution Width 17.1 % (9.3-17.3); White Blood Count 13.4 T/CUMM (4-12)
[2019-07-18 05:42] LABS: Platelet Count 68 T/CUMM (130-400)
[2019-07-18] MEDS: NOREPINEPHRINE 8 MG in SODIUM CHLORIDE 0.9% 242 ML IV PRN ×3 (06:03→17:00)
[2019-07-18 06:04] LABS: Band Neutrophils 2 % (0-10); Hypochromasia 1+; Lymphocytes 2 % (20-55); Nucleated Red Blood Cells 4 (0-5); Segmented Neutrophils 91 % (50-85); Total Cells Counted 100
[2019-07-18 06:05] LABS: Microcytosis 1+; Ovalocytes Few; Polychromasia Slight
[2019-07-18 06:06] LABS: Anisocytosis 1+; Platelet Estimate Decreased; Tear Drop Cells Slight
[2019-07-18] MEDS: PANTOPRAZOLE 40 MG VIAL IV SCH (08:54)
[2019-07-18] MEDS: SEVELAMER CARBONATE 800 MG TABLET PO SCH ×3 (08:54→16:24)
[2019-07-18] MEDS: HYDROXYCHLOROQUINE 200 MG TABLET PO SCH ×2 (08:55→20:50)
[2019-07-18] MEDS: DESITIN 4OZ/NYSTATIN 15 GRAM MIXTURE PASTE TOP SCH ×2 (08:55→20:50)
[2019-07-18] MEDS: APIXABAN 2.5 MG TABLET PO SCH ×2 (08:55→20:50)
[2019-07-18] MEDS: FERROUS SULFATE 325 MG TABLET PO SCH ×3 (08:55→20:50)
[2019-07-18] MEDS: MULTIVITAMIN (BEROCCA) TABLET PO SCH (08:55)
[2019-07-18] MEDS ORDERED: NOREPINEPHRINE 4 MG/4 ML VIAL IV ONE (12:54)
[2019-07-18] MEDS: PHENYLEPHRINE INJ 160 MG in SODIUM CHLORIDE 0.9% 234 ML IV PRN (17:45)
[2019-07-18] MEDS: NOREPINEPHRINE 16 MG in SODIUM CHLORIDE 0.9% 234 ML IV PRN (20:15)
[2019-07-18] MEDS: LATANOPROST 0.005% OPH SOLN 2.5 ML BOTTLE BOTH EYES SCH (20:50)
[2019-07-19] MEDS: PHENYLEPHRINE INJ 160 MG in SODIUM CHLORIDE 0.9% 234 ML IV PRN (00:20)
[2019-07-19] MEDS: INSULIN REGULAR 100 UNIT/ML SUBCUT SCH ×4 (00:59→18:11)
[2019-07-19] MEDS: NOREPINEPHRINE 8 MG in SODIUM CHLORIDE 0.9% 242 ML IV PRN ×4 (03:20→14:16)
[2019-07-19 04:30] LABS: ABG Base Excess -20.3 MMOL/L (-2.5-2.5); ABG HCO3 9.2 MMOL/L (20-26); ABG Oxygen Saturation 84.5 % (95-100); ABG PCO2 50.7 MM HG (35-48); ABG PO2 69.9 MM HG (80-95); ABG TCO2 11.3 MMOL/L (23-27)
[2019-07-19 04:31] LABS: ABG PH 6.947 (7.35-7.45)
[2019-07-19 05:01] LABS: Calcium 10.4 MG/DL (8.5-10.1); Osmolality,Calculated 284.1 MOS/KG (273-304)
[2019-07-19 05:03] LABS: Basophils % 0.2 % (0.0-0.8); Hematocrit 31.6 VOL% (35.7-47.0); Immature Granulocytes % 2.8 %; Immature Granulocytes Absolute 0.53 #; Lymphocytes # 0.6 10*3/uL (1.4-4.0); Lymphocytes % 3.2 % (21.3-54.2); Mean Corpuscular HGB Conc 26.9 GM/DL (32-36); Mean Corpuscular Volume 105.7 FL (87-102); Mean Platelet Volume 13.2 FL (9.6-12.0); Monocytes % 3.4 % (1.7-12.7); NRBC # 0.81 10*3/uL; Neutrophils % 90.4 % (38.7-73.9); Red Blood Count 2.99 MC/CUMM (3.8-5.5); Red Cell Distribution Width 17.4 % (9.3-17.3); White Blood Count 19.2 T/CUMM (4-12)
[2019-07-19 05:05] LABS: Hemoglobin 8.5 GM/DL (12.0-16.0); Platelet Count 80 T/CUMM (130-400)
[2019-07-19 05:45] LABS: Band Neutrophils 3 % (0-10); Hypochromasia 1+; Lymphocytes 2 % (20-55); Nucleated Red Blood Cells 6 (0-5); Ovalocytes Slight; Platelet Estimate Decreased; Segmented Neutrophils 94 % (50-85); Total Cells Counted 100
[2019-07-19 05:46] LABS: Macrocytosis Slight; Polychromasia Slight
[2019-07-19] MEDS ORDERED: HYDROCORTISONE 100 MG VIAL IV SCH (09:00)
[2019-07-19] MEDS: MULTIVITAMIN (BEROCCA) TABLET PO SCH (09:51)
[2019-07-19] MEDS: DESITIN 4OZ/NYSTATIN 15 GRAM MIXTURE PASTE TOP SCH ×2 (09:51→21:10)
[2019-07-19] MEDS: FERROUS SULFATE 325 MG TABLET PO SCH ×3 (09:51→20:50)
[2019-07-19] MEDS: PANTOPRAZOLE 40 MG VIAL IV SCH (09:51)
[2019-07-19] MEDS: SEVELAMER CARBONATE 800 MG TABLET PO SCH ×3 (09:51→17:20)
[2019-07-19] MEDS: APIXABAN 2.5 MG TABLET PO SCH ×2 (11:23→20:50)
[2019-07-19] MEDS: HYDROCORTISONE 100 MG VIAL IV SCH ×2 (12:00→18:10)
[2019-07-19] MEDS: DEXTROSE 10% 250 ML BAG IV PRN ×3 (12:36→15:06)
[2019-07-19] MEDS: DEXTROSE 10% 1,000 ML IV SCH (16:00)
[2019-07-19] MEDS ORDERED: cefTAZidime 1,000 MG in SYRINGE 1 EACH IV SCH (16:00)
[2019-07-19] MEDS: NOREPINEPHRINE 16 MG in SODIUM CHLORIDE 0.9% 234 ML IV PRN (18:11)
[2019-07-19] MEDS: LATANOPROST 0.005% OPH SOLN 2.5 ML BOTTLE BOTH EYES SCH (21:10)
[2019-07-20] MEDS: NOREPINEPHRINE 16 MG in SODIUM CHLORIDE 0.9% 234 ML IV PRN (00:45)
[2019-07-20] MEDS: HYDROCORTISONE 100 MG VIAL IV SCH (00:50)
[2019-07-20] MEDS: DEXTROSE 10% 1,000 ML IV SCH (00:55)
[2019-07-20] MEDS: DEXTROSE 10% 250 ML BAG IV PRN (00:55)
[2019-07-20] MEDS: INSULIN REGULAR 100 UNIT/ML SUBCUT SCH (01:01)
[2019-07-20 04:15] VITALS: BP 58/29
== END 2019-07-20 04:15 | disposition expired | DRG 870 ==
LOC: N.CC 02:35 → SUATTDRO 02:35
PROVIDERS: ADMIT Internal Medicine; ATTEND Internal Medicine